=== PATIENT | female | born 1980 | race Caucasian/White ===

== ENCOUNTER 2020-05-22 16:20 | Inpatient (IN) | payer OTHER ==
[~2020-05-22] VITALS: Ht 172.7 cm; Wt 109.1 kg
[2020-05-22 17:27] LABS: BASO # 0.1 x10^3/uL (0.0-0.2); BASO % 1 % (0-3); EOS # 0.1 x10^3/uL (0.0-0.7); EOS % 1 % (0-3); HEMATOCRIT 38.3 % (36.0-47.0); HEMOGLOBIN 12.8 g/dL (12.0-15.5); LYMPH # 2.1 x10^3/uL (1.0-4.8); LYMPH % 17 % (24-48); MEAN CORPUSCULAR HEMOGLOBIN 29 pg (25-35); MEAN CORPUSCULAR HGB CONC 34 g/dL (31-37); MEAN CORPUSCULAR VOLUME 87 fL (79-100); MONO # 0.7 x10^3/uL (0.0-1.1); MONO % 6 % (0-9); NEUT # 9.3 x10^3/uL (1.8-7.7); NEUT % 76 % (31-73); PLATELET COUNT 273 x10^3/uL (140-400); RED BLOOD COUNT 4.41 x10^6/uL (3.50-5.40); RED CELL DISTRIBUTION WIDTH 13.4 % (11.5-14.5); WHITE BLOOD COUNT 12.3 x10^3/uL (4.0-11.0)
[2020-05-22 17:29] LABS: AMPHETAMINE/METHAMPHETAMINE NEG (NEG); BARBITURATES NEG (NEG); BENZODIAZEPINES NEG (NEG); BILIRUBIN,URINE NEGATIVE (NEG); CANNABINOIDS NEG (NEG); CLARITY,URINE TURBID; COCAINE NEG (NEG); COLOR,URINE YELLOW; METHADONE NEG (NEG); NITRITE,URINE POSITIVE (NEG); OPIATES NEG (NEG); PH,URINE 8.5 (<5.0-8.0); PHENCYCLIDINE NEG (NEG); PROTEIN,URINE NEGATIVE (NEG-TRACE)
[2020-05-22] MEDS ORDERED: ONDANSETRON PF 4 MG/2 ML VIAL. IVP ONE (17:30)
[2020-05-22] MEDS ORDERED: fentaNYL PF VIAL 100 MCG/2 ML VIAL IVP ONE ×2 (17:30→19:45)
[2020-05-22] MEDS ORDERED: FAMOTIDINE 20 MG/2 ML VIAL IVP ONE (17:30)
[2020-05-22 17:38] LABS: BACTERIA,URINE MANY /HPF (0-FEW); SQUAMOUS EPITHELIAL CELL,UR MANY /LPF
[2020-05-22 17:39] LABS: CALCIUM 9.2 mg/dL (8.5-10.1); CREATININE 0.8 mg/dL (0.6-1.0); GFR 80.3; POTASSIUM 4.1 mmol/L (3.5-5.1)
[2020-05-22 17:39] LABS: AMORPHOUS SEDIMENT,UR PRESENT /HPF; RBC,URINE OCC /HPF (0-2)
[2020-05-22 17:45] LABS: ALBUMIN 3.7 g/dL (3.4-5.0); ALBUMIN/GLOBULIN RATIO 1.1 (1.0-1.7); TOTAL BILIRUBIN 0.8 mg/dL (0.2-1.0); TOTAL PROTEIN 7.1 g/dL (6.4-8.2)
[2020-05-22 18:06] LABS: PROTHROMBIN TIME PATIENT 12.3 SEC (11.7-14.0)
--- NOTE | 2020-05-22 18:47 | RAD ---
Exam: Ultrasound abdomen complete Indication: Epigastric pain Technique: Real-time grayscale and color Doppler images of the abdomen were obtained by the department tunnel heading supervisor. Comparisons: None FINDINGS: Increased echogenicity of the liver. Hepatopedal flow noted within the portal vein. Numerous gallstones in the gallbladder. There is a sonographic Driscoll sign per the department tunnel heading supervisor. Common bile duct measures 7 mm in diameter. Right kidney measures 11.1 cm in length. No hydronephrosis. Left kidney measures 11.5 cm in length. No hydronephrosis. Pancreas is not well seen secondary overlying bowel gas. Spleen measures 10.57 m in length. Visualized portions aorta and IVC are unremarkable. IMPRESSION: 1. Cholelithiasis with positive sonographic Driscoll sign. Findings are suspicious for acute cholecystitis. Further evaluation if necessary can BE performed with HIDA scan. 2. No hydronephrosis. 3. Hepatic steatosis 4. No splenomegaly. Electronically signed by: Mercedez Driver MD (05/22/2020 6:44 PM) [id number]
[2020-05-22] MEDS ORDERED: PIPERACILLIN/TAZOBACTAM 3.375 GM in IV NORMAL SALINE 50ML 50 ML IV ONE (19:45)
[2020-05-22] MEDS ORDERED: ONDANSETRON PF 4 MG/2 ML VIAL. IV PRN (19:45)
[2020-05-22] MEDS ORDERED: IV NORMAL SALINE 1000ML BAG 1,000 ML IV ONE (19:45)
--- NOTE | 2020-05-22 20:13 | PHYS DOC ---
Past Medical History Past Medical History: No Pertinent History Past Surgical History: Oophorectomy, Other Additional Past Surgical Histo: Ectopic preg, Right oopherectomy Smoking Status: Never Smoker Alcohol Use: Occasionally General Adult EDM: Chief Complaint: ABDOMINAL PAIN HPI: HPI: Patient is a 39 year old female with no significant medical history who presents to the ED today complaining of 10 out of 10 epigastric abdominal pain/right upper quadrant abdominal pain, symptoms began a couple weeks ago, patient not specific on the exact timeline. She states symptoms are intermittent and occur mostly after she eats. Denies anything specifically relieving the symptoms. She states she occasionally gets nauseated but has not vomited. Denies any diarrhea. Review of Systems: Review of Systems: Constitutional: Denies fever or chills. [] Eyes: Denies change in visual acuity. [] HENT: Denies nasal congestion or sore throat. [] Respiratory: Denies cough or shortness of breath. [] Cardiovascular: Denies chest pain or edema. [] GI: Reports epigastric abdominal pain, right upper quadrant pain, denies vomiting, bloody stools or diarrhea. [] : Denies dysuria. [] Musculoskeletal: Denies back pain or joint pain. [] Integument: Denies rash. [] Neurologic: Denies headache, focal weakness or sensory changes. [] Psychiatric: Denies depression or anxiety. [] Heart Score: Risk Factors: Risk Factors: DM, Current or recent (<one month) smoker, HTN, HLP, family history of CAD, obesity. Risk Scores: Score 0 - 3: 2.5% MACE over next 6 weeks - Discharge Home Score 4 - 6: 20.3% MACE over next 6 weeks - Admit for Clinical Observation Score 7 - 10: 72.7% MACE over next 6 weeks - Early Invasive Strategies Current Medications: Current Medications Medications (Trade) Dose Ordered Sig/Selin Start Time Stop Time Status Last Admin Dose Admin Famotidine (Pepcid Vial) 20 mg 1X ONCE 05/22/20 17:30 05/22/20 17:31 DC 05/22/20 17:34 20 MG Fentanyl Citrate (Fentanyl 2ml Vial) 50 mcg PRN Q1HR PRN 05/22/20 19:45 05/23/20 19:44 Ondansetron HCl (Zofran) 4 mg PRN Q8HRS PRN 05/22/20 19:45 05/23/20 19:44 Piperacillin Sod/ Tazobactam Sod 3.375 gm/Sodium Chloride 50 ml @ 100 mls/hr 1X ONCE 05/22/20 19:45 05/22/20 20:14 Sodium Chloride 1,000 ml @ 75 mls/hr 1X ONCE 05/22/20 19:45 05/23/20 09:04 Allergies: Allergies: Allergies Coded Allergies Type Severity Reaction Last Updated Verified No Known Drug Allergies 05/22/20 No Physical Exam: PE: Constitutional: Well developed, well nourished, no acute distress, non-toxic appearance. [] HENT: Normocephalic, atraumatic, bilateral external ears normal, oropharynx moist, no oral exudates, nose normal. [] Eyes: PERRLA, EOMI, conjunctiva normal, no discharge. [] Neck: Normal range of motion, no tenderness, supple, no stridor. [] Cardiovascular:Heart rate regular rhythm, no murmur [] Lungs & Thorax: Bilateral breath sounds clear to auscultation [] Abdomen: Bowel sounds normal, soft, mild tenderness on palpation of the right upper quadrant with positive Driscoll sign, no right lower quadrant tenderness, no masses, no pulsatile masses. [] Skin: Warm, dry, no erythema, no rash. [] Back: No tenderness, no CVA tenderness. [] Extremities: No tenderness, no cyanosis, no clubbing, ROM intact, no edema. [] Neurologic: Alert and oriented X 3, normal motor function, normal sensory function, no focal deficits noted. [] Psychologic: Affect normal, judgement normal, mood normal. [] Current Patient Data: Labs: Laboratory Tests Test 05/22/20 17:08 05/22/20 17:15 05/22/20 17:17 05/22/20 17:35 Urine Collection Type Unknown Urine Color Yellow Urine Clarity Turbid Urine pH 8.5 (<5.0-8.0) Urine Specific Warren 1.020 (1.000-1.030) Urine Protein Negative mg/dL (NEG-TRACE) Urine Glucose (UA) Negative mg/dL (NEG) Urine Ketones (Stick) Negative mg/dL (NEG) Urine Blood Negative (NEG) Urine Nitrite Positive (NEG) Urine Bilirubin Negative (NEG) Urine Urobilinogen Dipstick 1.0 mg/dL (0.2 mg/dL) Urine Leukocyte Esterase Moderate (NEG) Urine RBC Occ /HPF (0-2) Urine WBC 5-10 /HPF (0-4) Urine Squamous Epithelial Cells Many /LPF Urine Amorphous Sediment Present /HPF Urine Bacteria Many /HPF (0-FEW) Urine Opiates Screen Neg (NEG) Urine Methadone Screen Neg (NEG) Urine Barbiturates Neg (NEG) Urine Phencyclidine Screen Neg (NEG) Urine Amphetamine/Methamphetamine Neg (NEG) Urine Benzodiazepines Screen Neg (NEG) Urine Cocaine Screen Neg (NEG) Urine Cannabinoids Screen Neg (NEG) Urine Ethyl Alcohol Neg (NEG) White Blood Count 12.3 x10^3/uL (4.0-11.0) H Red Blood Count 4.41 x10^6/uL (3.50-5.40) Hemoglobin 12.8 g/dL (12.0-15.5) Hematocrit 38.3 % (36.0-47.0) Mean Corpuscular Volume 87 fL (79-100) Mean Corpuscular Hemoglobin 29 pg (25-35) Mean Corpuscular Hemoglobin Concent 34 g/dL (31-37) Red Cell Distribution Width 13.4 % (11.5-14.5) Platelet Count 273 x10^3/uL (140-400) Neutrophils (%) (Auto) 76 % (31-73) H Lymphocytes (%) (Auto) 17 % (24-48) L Monocytes (%) (Auto) 6 % (0-9) Eosinophils (%) (Auto) 1 % (0-3) Basophils (%) (Auto) 1 % (0-3) Neutrophils # (Auto) 9.3 x10^3/uL (1.8-7.7) H Lymphocytes # (Auto) 2.1 x10^3/uL (1.0-4.8) Monocytes # (Auto) 0.7 x10^3/uL (0.0-1.1) Eosinophils # (Auto) 0.1 x10^3/uL (0.0-0.7) Basophils # (Auto) 0.1 x10^3/uL (0.0-0.2) Sodium Level 142 mmol/L (136-145) Potassium Level 4.1 mmol/L (3.5-5.1) Chloride Level 106 mmol/L (98-107) Carbon Dioxide Level 29 mmol/L (21-32) Anion Gap 7 (6-14) Blood Urea Nitrogen 10 mg/dL (7-20) Creatinine 0.8 mg/dL (0.6-1.0) Estimated GFR (Cockcroft-Gault) 80.3 BUN/Creatinine Ratio 13 (6-20) Glucose Level 107 mg/dL (70-99) H Calcium Level 9.2 mg/dL (8.5-10.1) Magnesium Level 2.0 mg/dL (1.8-2.4) Total Bilirubin 0.8 mg/dL (0.2-1.0) Aspartate Amino Transferase (AST) 89 U/L (15-37) H Alanine Aminotransferase (ALT) 65 U/L (14-59) H Alkaline Phosphatase 115 U/L (46-116) Total Protein 7.1 g/dL (6.4-8.2) Albumin 3.7 g/dL (3.4-5.0) Albumin/Globulin Ratio 1.1 (1.0-1.7) Lipase 169 U/L (73-393) Ethyl Alcohol Level < 10 mg/dL (0-10) POC Urine HCG, Qualitative Hcg negative (Negative) Prothrombin Time 12.3 SEC (11.7-14.0) Prothrombin Time INR 1.0 (0.8-1.1) Activated Partial Thromboplast Time 29 SEC (24-38) Laboratory Tests 05/22/20 17:15 Laboratory Tests 05/22/20 17:15 Vital Signs: Vital Signs Date Time Temp Pulse Resp B/P (MAP) Pulse Ox O2 Delivery O2 Flow Rate FiO2 05/22/20 19:48 Room Air 05/22/20 18:20 74 133/73 (93) 99 05/22/20 16:40 98.6 24 98.6 EKG: EKG: [] Radiology/Procedures: Radiology/Procedures: []PROCEDURE: ABDOMEN COMPLETE Exam: Ultrasound abdomen complete Indication: Epigastric pain Technique: Real-time grayscale and color Doppler images of the abdomen were obtained by the department hairspring studder. Comparisons: None FINDINGS: Increased echogenicity of the liver. Hepatopedal flow noted within the portal vein. Numerous gallstones in the gallbladder. There is a sonographic Driscoll sign per the department hairspring studder. Common bile duct measures 7 mm in diameter. Right kidney measures 11.1 cm in length. No hydronephrosis. Left kidney measures 11.5 cm in length. No hydronephrosis. Pancreas is not well seen secondary overlying bowel gas. Spleen measures 10.57 m in length. Visualized portions aorta and IVC are unremarkable. IMPRESSION: 1. Cholelithiasis with positive sonographic Driscoll sign. Findings are suspicious for acute cholecystitis. Further evaluation if necessary can BE performed with HIDA scan. 2. No hydronephrosis. 3. Hepatic steatosis 4. No splenomegaly. Electronically signed by: Mercedez Freedman MD (05/22/2020 6:44 PM) [id number] DICTATED and SIGNED BY: MERCEDEZ FREEDMAN MD DATE: 05/22/20 1844 Course & Med Decision Making: Course & Med Decision Making Pertinent Labs and Imaging studies reviewed. (See chart for details) This is a 39-year-old female patient presenting to the ED today with epigastric abdominal pain and right upper quadrant pain. CBC with a WBC of 12.3, CMP with AST of 89, ALT of 65. Urine positive for nitrates and leukocytes but appears contaminated. Ultrasound of the abdomen is positive for cholecystitis. Patient is afebrile. Patient was given Zosyn in the ED. Spoke with Dr. Baker who requested patient to be n.p.o. after midnight Spoke with Dr. He who accepted patient for admission Melania Disclaimer: Melania Disclaimer: This electronic medical record was generated, in whole or in part, using a voice recognition dictation system. Departure Departure Impression: Primary Impression: Acute cholecystitis Disposition: ADMITTED INPATIENT Condition: STABLE Referrals: NO PCP (PCP) Justicifation of Admission Dx: Justifications for Admission: Justification of Admission Dx: Yes Comments: acute cholecystitis FAUSTO HESTER CLINICAL RESEARCH ASSISTANT May 22, 2020 20:13
[2020-05-22] MEDS: fentaNYL PF VIAL 100 MCG/2 ML VIAL IV PRN (22:58)
[2020-05-22 23:00] VITALS: BP 158/94
--- NOTE | 2020-05-22 23:00 | NUR ---
ADMISSION NOTE: Patient arrived to room 500 via wheelchair accompanied by ED staff. Patient able to take self to bathroom and transfer self to hospital bed without any visible difficulty. Admit order Med/Surg, no tele monitor applied. Patient complains of pain at this time. See eMAR for details. Educated patient on NPO status. Patient has no other complaints at this time. Bed low, locked, call light within reach. Will continue to monitor.
[2020-05-23] VITALS (14 sets, daily range): BP systolic 118–147; BP diastolic 72–92
[2020-05-23] MEDS: fentaNYL PF VIAL 100 MCG/2 ML VIAL IV PRN ×4 (02:49→18:09)
[2020-05-23] MEDS ORDERED: IV RINGERS,LACTATED 1000ML 1,000 ML IV SCH (07:27)
[2020-05-23 07:30] LABS: ALBUMIN 3.2 g/dL (3.4-5.0); ALBUMIN/GLOBULIN RATIO 1.1 (1.0-1.7); CALCIUM 8.6 mg/dL (8.5-10.1); CREATININE 0.7 mg/dL (0.6-1.0); GFR 93.6; TOTAL BILIRUBIN 1.6 mg/dL (0.2-1.0); TOTAL PROTEIN 6.1 g/dL (6.4-8.2)
[2020-05-23] MEDS ORDERED: MORPHINE SULFATE 2 MG/ML VIAL. IV PRN ×2 (07:30→11:45)
[2020-05-23] MEDS ORDERED: ONDANSETRON PF 4 MG/2 ML VIAL. IV PRN (07:30)
[2020-05-23] MEDS ORDERED: HYDROmorphone 2 MG/ML VIAL IV PRN (07:30)
[2020-05-23] MEDS ORDERED: PROCHLORPERAZINE 10 MG/2 ML VIAL. IV PRN (07:30)
[2020-05-23] MEDS ORDERED: LIDOCAINE 1% PF 2 ML VIAL. ID PRN (07:30)
[2020-05-23] MEDS ORDERED: fentaNYL PF VIAL 100 MCG/2 ML VIAL IV PRN ×2 (07:30)
[2020-05-23 07:47] LABS: BASO % 0 % (0-3); EOS % 1 % (0-3); HEMATOCRIT 35.6 % (36.0-47.0); HEMOGLOBIN 11.9 g/dL (12.0-15.5); LYMPH # 1.4 x10^3/uL (1.0-4.8); LYMPH % 21 % (24-48); MEAN CORPUSCULAR HEMOGLOBIN 30 pg (25-35); MEAN CORPUSCULAR HGB CONC 34 g/dL (31-37); MEAN CORPUSCULAR VOLUME 89 fL (79-100); MONO # 0.4 x10^3/uL (0.0-1.1); MONO % 6 % (0-9); NEUT # 4.8 x10^3/uL (1.8-7.7); NEUT % 73 % (31-73); PLATELET COUNT 231 x10^3/uL (140-400); RED CELL DISTRIBUTION WIDTH 13.3 % (11.5-14.5); WHITE BLOOD COUNT 6.6 x10^3/uL (4.0-11.0)
[2020-05-23] MEDS ORDERED: HEPARIN 1,000 UNIT in IV NORMAL SALINE 1,000 ML for SURG PERIOP IRR ONE (08:00)
[2020-05-23] MEDS ORDERED: SURGICEL HEMOSTAT 4X8 EACH. ONE (08:37)
[2020-05-23] MEDS ORDERED: IOHEXOL 300 MG/ML 50 ML VIAL. ONE ×2 (08:37→10:37)
[2020-05-23] MEDS ORDERED: BISACODYL 10 MG SUPP.RECT. ONE (08:37)
[2020-05-23] MEDS ORDERED: BUPIVACAINE-EPI 0.5%-1:200000 MPF 30 ML VIAL. ONE (08:37)
[2020-05-23] MEDS ORDERED: fentaNYL PF VIAL 100 MCG/2 ML VIAL ONE ×2 (09:13→11:24)
[2020-05-23] MEDS ORDERED: PROPOFOL 10 MG/ML (20ML) VIAL. IV ONE (09:13)
[2020-05-23] MEDS ORDERED: MIDAZOLAM HCL/PF 2 MG/2 ML VIAL. ONE (09:13)
[2020-05-23] MEDS ORDERED: DEXAMETHASONE SOD PHOS 4 MG/ML VIAL ONE (09:13)
[2020-05-23] MEDS ORDERED: ROCURONIUM 50 MG/5 ML VIAL. ONE (09:13)
[2020-05-23] MEDS ORDERED: ONDANSETRON PF 4 MG/2 ML VIAL. ONE (09:13)
[2020-05-23] MEDS ORDERED: LIDOCAINE 2% PF 5 ML VIAL. ONE (09:13)
--- NOTE | 2020-05-23 09:39 | NUR ---
SS following for discharge planning. SS reviewed pt chart and discussed with pt RN. Pt is from home with spouse and is currently on room air. COVID19 negative. Per RN, pt having lap cholecystectomy today. Discharge plan is to home when ready. SS will continue to follow for discharge planning.
--- NOTE | 2020-05-23 09:51 | PDOC1 ---
History and Physical Date of Admission Date of Admission DATE: 05/23/20 TIME: 09:50 Identification/Chief Complaint Chief Complaint seen in er with acute cholecystitis , 39 year old female with no significant medical history who presents to the ED today complaining of 10 out of 10 epigastric abdominal pain/right upper quadrant abdominal pain, symptoms began a couple weeks ago, patient not specific on the exact timeline. She states symptoms are intermittent and occur mostly after she eats. Denies anything specifically relieving the symptoms. History of Present Illness History of Present Illness OPERATIVE NOTE. OPERATIVE NOTE Date: Date: May 23, 2020 Pre-Op Diagnosis: Symptomatic cholelithiasis Post-Op Diagnosis: same, cholecystitis, choledocholithiasis with obstruction of bile duct Procedure Performed: laparoscopic cholecystectomy with cholangiogram, common bile duct exploration Surgeon: Juan Diego Baker Anesthesia Type: GETA plus local Blood Loss: 50 Specimans Obtained: gallbladder, common bile duct stone Findings: edematous gallbladder, multiple large stones, normal liver, cholangiogram with obstructing distal common bile duct stone, morbid obesity making the procedure difficult throughout. Complications: none Patient tolerated procedure well and sent to PACU in stable condition. All counts correct. TOMMY BAKER MD May 23, 2020 11:51 Past Medical History Past Medical History Past Medical History Past Medical History Past Medical History: No Pertinent History Past Surgical History: Oophorectomy, Other Additional Past Surgical Histo: Ectopic preg, Right oopherectomy Smoking Status: Never Smoker Alcohol Use: Occasionally FHX OBESITY Psych: No pertinent hx Infectious disease: No pertinent hx Family History Family History: High Cholestrol, Hypertension Current Problem List Problem List Problems Medical Problems: (1) Acute cholecystitis Status: Acute Current Medications Current Medications Current Medications Famotidine (Pepcid Vial) 20 mg 1X ONCE IVP Last administered on 05/22/20at 17:34; Start 05/22/20 at 17:30; Stop 05/22/20 at 17:31; Status DC Ondansetron HCl (Zofran) 4 mg 1X ONCE IVP Last administered on 05/22/20at 17:34; Start 05/22/20 at 17:30; Stop 05/22/20 at 17:31; Status DC Fentanyl Citrate (Fentanyl 2ml Vial) 50 mcg 1X ONCE IVP Last administered on 05/22/20at 17:34; Start 05/22/20 at 17:30; Stop 05/22/20 at 17:31; Status DC Fentanyl Citrate (Fentanyl 2ml Vial) 50 mcg 1X ONCE IVP Last administered on 05/22/20at 19:48; Start 05/22/20 at 19:45; Stop 05/22/20 at 19:47; Status DC Ondansetron HCl (Zofran) 4 mg PRN Q8HRS PRN IV NAUSEA/VOMITING; Start 05/22/20 at 19:45; Stop 05/23/20 at 19:44 Fentanyl Citrate (Fentanyl 2ml Vial) 50 mcg PRN Q1HR PRN IV PAIN Last administered on 05/23/20at 06:02; Start 05/22/20 at 19:45; Stop 05/23/20 at 19:44 Sodium Chloride 1,000 ml @ 75 mls/hr 1X ONCE IV Last administered on 05/22/20at 20:13; Start 05/22/20 at 19:45; Stop 05/23/20 at 09:04; Status DC Piperacillin Sod/ Tazobactam Sod 3.375 gm/Sodium Chloride 50 ml @ 100 mls/hr 1X ONCE IV Last administered on 05/22/20at 20:13; Start 05/22/20 at 19:45; Stop 05/22/20 at 20:14; Status DC Ondansetron HCl (Zofran) 4 mg PRN Q6HRS PRN IV NAUSEA/VOMITING; Start 05/23/20 at 07:30; Stop 05/24/20 at 07:29 Fentanyl Citrate (Fentanyl 2ml Vial) 25 mcg PRN Q5MIN PRN IV MILD PAIN 1-3; Start 05/23/20 at 07:30; Stop 05/24/20 at 07:29 Fentanyl Citrate (Fentanyl 2ml Vial) 50 mcg PRN Q5MIN PRN IV MODERATE TO SEVERE PAIN; Start 05/23/20 at 07:30; Stop 05/24/20 at 07:29 Morphine Sulfate (Morphine Sulfate) 1 mg PRN Q10MIN PRN IV SEVERE PAIN 7-10; Start 05/23/20 at 07:30; Stop 05/24/20 at 07:29 Ringer's Solution 1,000 ml @ 30 mls/hr Q24H IV ; Start 05/23/20 at 07:27; Stop 05/23/20 at 19:26 Lidocaine HCl (Xylocaine-Mpf 1% 2ml Vial) 2 ml PRN 1X PRN ID PRIOR TO IV START; Start 05/23/20 at 07:30; Stop 05/24/20 at 07:29 Hydromorphone HCl (Dilaudid) 0.5 mg PRN Q10MIN PRN IV SEV PAIN, Second choice; Start 05/23/20 at 07:30; Stop 05/24/20 at 07:29 Prochlorperazine Edisylate (Compazine) 5 mg PACU PRN PRN IV NAUSEA, MRX1; Start 05/23/20 at 07:30; Stop 05/24/20 at 07:29 Heparin Sodium (Porcine) 1000 unit/Sodium Chloride 1,001 ml @ 1,001 mls/hr 1X ONCE IRR ; Start 05/23/20 at 08:00; Stop 05/23/20 at 08:59; Status DC Bupivacaine HCl/ Epinephrine Bitart (Sensorcain-Epi 0.5%-1:616603 Mpf) 30 ml STK-MED ONCE .ROUTE ; Start 05/23/20 at 08:37; Stop 05/23/20 at 08:37; Status DC Iohexol (Omnipaque 300 Mg/ml) 50 ml STK-MED ONCE .ROUTE ; Start 05/23/20 at 08:37 ; Stop 05/23/20 at 08:37; Status DC Cellulose (Surgicel Hemostat 4x8) 1 each STK-MED ONCE .ROUTE ; Start 05/23/20 at 08:37; Stop 05/23/20 at 08:37; Status DC Bisacodyl (Dulcolax Supp) 10 mg STK-MED ONCE .ROUTE ; Start 05/23/20 at 08:37; Stop 05/23/20 at 08:37; Status DC Propofol (Diprivan) 200 mg STK-MED ONCE IV ; Start 05/23/20 at 09:13; Stop 05/23/20 at 09:13; Status DC Lidocaine HCl (Lidocaine Pf 2% Vial) 5 ml STK-MED ONCE .ROUTE ; Start 05/23/20 at 09:13; Stop 05/23/20 at 09:13; Status DC Ondansetron HCl (Zofran) 4 mg STK-MED ONCE .ROUTE ; Start 05/23/20 at 09:13; Stop 05/23/20 at 09:13; Status DC Dexamethasone Sodium Phosphate (Decadron) 4 mg STK-MED ONCE .ROUTE ; Start 05/23/20 at 09:13; Stop 05/23/20 at 09:13; Status DC Rocuronium Ama (Zemuron) 50 mg STK-MED ONCE .ROUTE ; Start 05/23/20 at 09:13; Stop 05/23/20 at 09:13; Status DC Fentanyl Citrate (Fentanyl 2ml Vial) 100 mcg STK-MED ONCE .ROUTE ; Start 05/23/20 at 09:13; Stop 05/23/20 at 09:13; Status DC Midazolam HCl (Versed) 2 mg STK-MED ONCE .ROUTE ; Start 05/23/20 at 09:13; Stop 05/23/20 at 09:13; Status DC Active Scripts Active Reported No Known Medications Prior To Admisstion (Info) Each 1 Each MC 1X Allergies Allergies: Coded Allergies: No Known Drug Allergies (Unverified , 05/22/20) ROS Review of System Review of Systems: Constitutional: Denies fever or chills. [] Eyes: Denies change in visual acuity. [] HENT: Denies nasal congestion or sore throat. [] Respiratory: Denies cough or shortness of breath. [] Cardiovascular: Denies chest pain or edema. [] GI: Reports epigastric abdominal pain, right upper quadrant pain, denies vomiting, bloody stools or diarrhea. [] : Denies dysuria. [] Musculoskeletal: Denies back pain or joint pain. [] Integument: Denies rash. [] Neurologic: Denies headache, focal weakness or sensory changes. [] Psychiatric: Denies depression or anxiety. [] 14 pt ros otherwise neg Neurological: No Behavorial Changes, No Bowel/Bladder ControlChng, No Confusion, No Dizziness, No Gait Disturbance, No Headaches, No Impaired Coord/balance, No Memory Loss, No Numbness/Tingling, No Seizures, No Speech Problems, No Tremors, No Visual Changes, No Weakness, No Other Physical Exam Physical Exam Constitutional: Well developed, well nourished, no acute distress, non-toxic appearance. [] HENT: Normocephalic, atraumatic, bilateral external ears normal, oropharynx moist, no oral exudates, nose normal. [] Eyes: PERRLA, EOMI, conjunctiva normal, no discharge. [] Neck: Normal range of motion, no tenderness, supple, no stridor. [] Cardiovascular:Heart rate regular rhythm, no murmur [] Lungs & Thorax: Bilateral breath sounds clear to auscultation [] Abdomen: Bowel sounds normal, soft, mild tenderness on palpation of the right upper quadrant with positive Driscoll sign, no right lower quadrant tenderness, no masses, no pulsatile masses. [] Skin: Warm, dry, no erythema, no rash. [] Back: No tenderness, no CVA tenderness. [] Extremities: No tenderness, no cyanosis, no clubbing, ROM intact, no edema. [] Neurologic: Alert and oriented X 3, normal motor function, normal sensory function, no focal deficits noted. [] Psychologic: Affect normal, judgment normal, mood normal. [] General: Alert, Oriented X3, Cooperative Lungs: Clear to auscultation Breasts: Not examined Extremities: No cyanosis Neuro: Normal speech, Cranial nerves 3-12 NL Psych/Mental Status: Mental status NL, Mood NL Vitals Vitals Vital Signs Date Time Temp Pulse Resp B/P (MAP) Pulse Ox O2 Delivery O2 Flow Rate FiO2 05/23/20 09:13 98.9 68 20 145/94 97 Room Air 98.9 Labs Labs Laboratory Tests Test 05/22/20 17:08 05/22/20 17:15 05/22/20 17:17 05/22/20 17:35 Urine Collection Type Unknown Urine Color Yellow Urine Clarity Turbid Urine pH 8.5 (<5.0-8.0) Urine Specific Wheeler 1.020 (1.000-1.030) Urine Protein Negative mg/dL (NEG-TRACE) Urine Glucose (UA) Negative mg/dL (NEG) Urine Ketones (Stick) Negative mg/dL (NEG) Urine Blood Negative (NEG) Urine Nitrite Positive (NEG) Urine Bilirubin Negative (NEG) Urine Urobilinogen Dipstick 1.0 mg/dL (0.2 mg/dL) Urine Leukocyte Esterase Moderate (NEG) Urine RBC Occ /HPF (0-2) Urine WBC 5-10 /HPF (0-4) Urine Squamous Epithelial Cells Many /LPF Urine Amorphous Sediment Present /HPF Urine Bacteria Many /HPF (0-FEW) Urine Opiates Screen Neg (NEG) Urine Methadone Screen Neg (NEG) Urine Barbiturates Neg (NEG) Urine Phencyclidine Screen Neg (NEG) Urine Amphetamine/Methamphetamine Neg (NEG) Urine Benzodiazepines Screen Neg (NEG) Urine Cocaine Screen Neg (NEG) Urine Cannabinoids Screen Neg (NEG) Urine Ethyl Alcohol Neg (NEG) White Blood Count 12.3 x10^3/uL (4.0-11.0) Red Blood Count 4.41 x10^6/uL (3.50-5.40) Hemoglobin 12.8 g/dL (12.0-15.5) Hematocrit 38.3 % (36.0-47.0) Mean Corpuscular Volume 87 fL (79-100) Mean Corpuscular Hemoglobin 29 pg (25-35) Mean Corpuscular Hemoglobin Concent 34 g/dL (31-37) Red Cell Distribution Width 13.4 % (11.5-14.5) Platelet Count 273 x10^3/uL (140-400) Neutrophils (%) (Auto) 76 % (31-73) Lymphocytes (%) (Auto) 17 % (24-48) Monocytes (%) (Auto) 6 % (0-9) Eosinophils (%) (Auto) 1 % (0-3) Basophils (%) (Auto) 1 % (0-3) Neutrophils # (Auto) 9.3 x10^3/uL (1.8-7.7) Lymphocytes # (Auto) 2.1 x10^3/uL (1.0-4.8) Monocytes # (Auto) 0.7 x10^3/uL (0.0-1.1) Eosinophils # (Auto) 0.1 x10^3/uL (0.0-0.7) Basophils # (Auto) 0.1 x10^3/uL (0.0-0.2) Sodium Level 142 mmol/L (136-145) Potassium Level 4.1 mmol/L (3.5-5.1) Chloride Level 106 mmol/L (98-107) Carbon Dioxide Level 29 mmol/L (21-32) Anion Gap 7 (6-14) Blood Urea Nitrogen 10 mg/dL (7-20) Creatinine 0.8 mg/dL (0.6-1.0) Estimated GFR (Cockcroft-Gault) 80.3 BUN/Creatinine Ratio 13 (6-20) Glucose Level 107 mg/dL (70-99) Calcium Level 9.2 mg/dL (8.5-10.1) Magnesium Level 2.0 mg/dL (1.8-2.4) Total Bilirubin 0.8 mg/dL (0.2-1.0) Aspartate Amino Transf (AST/SGOT) 89 U/L (15-37) Alanine Aminotransferase (ALT/SGPT) 65 U/L (14-59) Alkaline Phosphatase 115 U/L (46-116) Total Protein 7.1 g/dL (6.4-8.2) Albumin 3.7 g/dL (3.4-5.0) Albumin/Globulin Ratio 1.1 (1.0-1.7) Lipase 169 U/L (73-393) Ethyl Alcohol Level < 10 mg/dL (0-10) Bedside Urine HCG, Qualitative Hcg negative (Negative) Prothrombin Time 12.3 SEC (11.7-14.0) Prothromb Time International Ratio 1.0 (0.8-1.1) Activated Partial Thromboplast Time 29 SEC (24-38) Test 05/22/20 23:00 05/23/20 04:00 SARS-CoV-2 Antigen (Rapid) Negative (NEGATIVE) White Blood Count 6.6 x10^3/uL (4.0-11.0) Red Blood Count 4.00 x10^6/uL (3.50-5.40) Hemoglobin 11.9 g/dL (12.0-15.5) Hematocrit 35.6 % (36.0-47.0) Mean Corpuscular Volume 89 fL (79-100) Mean Corpuscular Hemoglobin 30 pg (25-35) Mean Corpuscular Hemoglobin Concent 34 g/dL (31-37) Red Cell Distribution Width 13.3 % (11.5-14.5) Platelet Count 231 x10^3/uL (140-400) Neutrophils (%) (Auto) 73 % (31-73) Lymphocytes (%) (Auto) 21 % (24-48) Monocytes (%) (Auto) 6 % (0-9) Eosinophils (%) (Auto) 1 % (0-3) Basophils (%) (Auto) 0 % (0-3) Neutrophils # (Auto) 4.8 x10^3/uL (1.8-7.7) Lymphocytes # (Auto) 1.4 x10^3/uL (1.0-4.8) Monocytes # (Auto) 0.4 x10^3/uL (0.0-1.1) Eosinophils # (Auto) 0.0 x10^3/uL (0.0-0.7) Basophils # (Auto) 0.0 x10^3/uL (0.0-0.2) Sodium Level 141 mmol/L (136-145) Potassium Level 4.0 mmol/L (3.5-5.1) Chloride Level 107 mmol/L (98-107) Carbon Dioxide Level 25 mmol/L (21-32) Anion Gap 9 (6-14) Blood Urea Nitrogen 8 mg/dL (7-20) Creatinine 0.7 mg/dL (0.6-1.0) Estimated GFR (Cockcroft-Gault) 93.6 BUN/Creatinine Ratio 11 (6-20) Glucose Level 93 mg/dL (70-99) Calcium Level 8.6 mg/dL (8.5-10.1) Total Bilirubin 1.6 mg/dL (0.2-1.0) Aspartate Amino Transf (AST/SGOT) 387 U/L (15-37) Alanine Aminotransferase (ALT/SGPT) 318 U/L (14-59) Alkaline Phosphatase 120 U/L (46-116) Total Protein 6.1 g/dL (6.4-8.2) Albumin 3.2 g/dL (3.4-5.0) Albumin/Globulin Ratio 1.1 (1.0-1.7) Laboratory Tests Test 05/22/20 17:08 05/22/20 17:15 05/22/20 17:17 05/22/20 17:35 Urine Collection Type Unknown Urine Color Yellow Urine Clarity Turbid Urine pH 8.5 (<5.0-8.0) Urine Specific Wheeler 1.020 (1.000-1.030) Urine Protein Negative mg/dL (NEG-TRACE) Urine Glucose (UA) Negative mg/dL (NEG) Urine Ketones (Stick) Negative mg/dL (NEG) Urine Blood Negative (NEG) Urine Nitrite Positive (NEG) Urine Bilirubin Negative (NEG) Urine Urobilinogen Dipstick 1.0 mg/dL (0.2 mg/dL) Urine Leukocyte Esterase Moderate (NEG) Urine RBC Occ /HPF (0-2) Urine WBC 5-10 /HPF (0-4) Urine Squamous Epithelial Cells Many /LPF Urine Amorphous Sediment Present /HPF Urine Bacteria Many /HPF (0-FEW) Urine Opiates Screen Neg (NEG) Urine Methadone Screen Neg (NEG) Urine Barbiturates Neg (NEG) Urine Phencyclidine Screen Neg (NEG) Urine Amphetamine/Methamphetamine Neg (NEG) Urine Benzodiazepines Screen Neg (NEG) Urine Cocaine Screen Neg (NEG) Urine Cannabinoids Screen Neg (NEG) Urine Ethyl Alcohol Neg (NEG) White Blood Count 12.3 x10^3/uL (4.0-11.0) Red Blood Count 4.41 x10^6/uL (3.50-5.40) Hemoglobin 12.8 g/dL (12.0-15.5) Hematocrit 38.3 % (36.0-47.0) Mean Corpuscular Volume 87 fL (79-100) Mean Corpuscular Hemoglobin 29 pg (25-35) Mean Corpuscular Hemoglobin Concent 34 g/dL (31-37) Red Cell Distribution Width 13.4 % (11.5-14.5) Platelet Count 273 x10^3/uL (140-400) Neutrophils (%) (Auto) 76 % (31-73) Lymphocytes (%) (Auto) 17 % (24-48) Monocytes (%) (Auto) 6 % (0-9) Eosinophils (%) (Auto) 1 % (0-3) Basophils (%) (Auto) 1 % (0-3) Neutrophils # (Auto) 9.3 x10^3/uL (1.8-7.7) Lymphocytes # (Auto) 2.1 x10^3/uL (1.0-4.8) Monocytes # (Auto) 0.7 x10^3/uL (0.0-1.1) Eosinophils # (Auto) 0.1 x10^3/uL (0.0-0.7) Basophils # (Auto) 0.1 x10^3/uL (0.0-0.2) Sodium Level 142 mmol/L (136-145) Potassium Level 4.1 mmol/L (3.5-5.1) Chloride Level 106 mmol/L (98-107) Carbon Dioxide Level 29 mmol/L (21-32) Anion Gap 7 (6-14) Blood Urea Nitrogen 10 mg/dL (7-20) Creatinine 0.8 mg/dL (0.6-1.0) Estimated GFR (Cockcroft-Gault) 80.3 BUN/Creatinine Ratio 13 (6-20) Glucose Level 107 mg/dL (70-99) Calcium Level 9.2 mg/dL (8.5-10.1) Magnesium Level 2.0 mg/dL (1.8-2.4) Total Bilirubin 0.8 mg/dL (0.2-1.0) Aspartate Amino Transf (AST/SGOT) 89 U/L (15-37) Alanine Aminotransferase (ALT/SGPT) 65 U/L (14-59) Alkaline Phosphatase 115 U/L (46-116) Total Protein 7.1 g/dL (6.4-8.2) Albumin 3.7 g/dL (3.4-5.0) Albumin/Globulin Ratio 1.1 (1.0-1.7) Lipase 169 U/L (73-393) Ethyl Alcohol Level < 10 mg/dL (0-10) Bedside Urine HCG, Qualitative Hcg negative (Negative) Prothrombin Time 12.3 SEC (11.7-14.0) Prothromb Time International Ratio 1.0 (0.8-1.1) Activated Partial Thromboplast Time 29 SEC (24-38) Test 05/22/20 23:00 05/23/20 04:00 SARS-CoV-2 Antigen (Rapid) Negative (NEGATIVE) White Blood Count 6.6 x10^3/uL (4.0-11.0) Red Blood Count 4.00 x10^6/uL (3.50-5.40) Hemoglobin 11.9 g/dL (12.0-15.5) Hematocrit 35.6 % (36.0-47.0) Mean Corpuscular Volume 89 fL (79-100) Mean Corpuscular Hemoglobin 30 pg (25-35) Mean Corpuscular Hemoglobin Concent 34 g/dL (31-37) Red Cell Distribution Width 13.3 % (11.5-14.5) Platelet Count 231 x10^3/uL (140-400) Neutrophils (%) (Auto) 73 % (31-73) Lymphocytes (%) (Auto) 21 % (24-48) Monocytes (%) (Auto) 6 % (0-9) Eosinophils (%) (Auto) 1 % (0-3) Basophils (%) (Auto) 0 % (0-3) Neutrophils # (Auto) 4.8 x10^3/uL (1.8-7.7) Lymphocytes # (Auto) 1.4 x10^3/uL (1.0-4.8) Monocytes # (Auto) 0.4 x10^3/uL (0.0-1.1) Eosinophils # (Auto) 0.0 x10^3/uL (0.0-0.7) Basophils # (Auto) 0.0 x10^3/uL (0.0-0.2) Sodium Level 141 mmol/L (136-145) Potassium Level 4.0 mmol/L (3.5-5.1) Chloride Level 107 mmol/L (98-107) Carbon Dioxide Level 25 mmol/L (21-32) Anion Gap 9 (6-14) Blood Urea Nitrogen 8 mg/dL (7-20) Creatinine 0.7 mg/dL (0.6-1.0) Estimated GFR (Cockcroft-Gault) 93.6 BUN/Creatinine Ratio 11 (6-20) Glucose Level 93 mg/dL (70-99) Calcium Level 8.6 mg/dL (8.5-10.1) Total Bilirubin 1.6 mg/dL (0.2-1.0) Aspartate Amino Transf (AST/SGOT) 387 U/L (15-37) Alanine Aminotransferase (ALT/SGPT) 318 U/L (14-59) Alkaline Phosphatase 120 U/L (46-116) Total Protein 6.1 g/dL (6.4-8.2) Albumin 3.2 g/dL (3.4-5.0) Albumin/Globulin Ratio 1.1 (1.0-1.7) Images Images Exam: Ultrasound abdomen complete Indication: Epigastric pain Technique: Real-time grayscale and color Doppler images of the abdomen were obtained by the department lodging house keeper. Comparisons: None FINDINGS: Increased echogenicity of the liver. Hepatopedal flow noted within the portal vein. Numerous gallstones in the gallbladder. There is a sonographic Driscoll sign per the department lodging house keeper. Common bile duct measures 7 mm in diameter. Right kidney measures 11.1 cm in length. No hydronephrosis. Left kidney measures 11.5 cm in length. No hydronephrosis. Pancreas is not well seen secondary overlying bowel gas. Spleen measures 10.57 m in length. Visualized portions aorta and IVC are unremarkable. IMPRESSION: 1. Cholelithiasis with positive sonographic Driscoll sign. Findings are suspicious for acute cholecystitis. Further evaluation if necessary can BE performed with HIDA scan. 2. No hydronephrosis. 3. Hepatic steatosis 4. No splenomegaly. Electronically signed by: Mercedez Freedman MD (05/22/2020 6:44 PM) [id number] DICTATED and SIGNED BY: MERCEDEZ FREEDMAN MD DATE: 05/22/20 1844 VTE Prophylaxis Ordered VTE Prophylaxis Devices: Contraindicated VTE Pharmacological Prophylaxi: Contraindicated Assessment/Plan Assessment/Plan IMPRESSION: 1. Cholelithiasis with positive sonographic Driscoll sign. suspicious for acute cholecystitis. 2. No hydronephrosis. 3. Hepatic steatosis 4. morbid obesity plan admit NPO IV FLUID SUPPORT CONSULT GEN SURGERY DVT PROPHYLAXIS, SCD'S Justicifation of Admission Dx: Justifications for Admission: Justification of Admission Dx: Yes ADELAIDA GONZALES MD May 23, 2020 09:51
--- NOTE | 2020-05-23 10:04 | PDOC2 ---
CONSULT Date of Consult Date of Consult DATE: 05/23/20 TIME: 09:59 Reason for Consult Reason for Consult: Calculous cholecystitis Referring Physician Referring Physician: Dr. He Identification/Chief Complaint Chief Complaint RUQ pain Source Source: Chart review, Patient History of Present Illness Reason for Visit: 39 yo F with on and off abd pain for awhile, but worsened last night. Not improved this AM. Pt seen in preop. Past Medical History Cardiovascular: No pertinent hx Past Surgical History Past Surgical History: Other (oophrectomy for ectopic ) Family History Family History: No Significant Social History No ALCOHOL: none Current Problem List Problem List Problems Medical Problems: (1) Acute cholecystitis Status: Acute Current Medications Current Medications Current Medications Famotidine (Pepcid Vial) 20 mg 1X ONCE IVP Last administered on 05/22/20at 17:34; Start 05/22/20 at 17:30; Stop 05/22/20 at 17:31; Status DC Ondansetron HCl (Zofran) 4 mg 1X ONCE IVP Last administered on 05/22/20at 17:34; Start 05/22/20 at 17:30; Stop 05/22/20 at 17:31; Status DC Fentanyl Citrate (Fentanyl 2ml Vial) 50 mcg 1X ONCE IVP Last administered on 05/22/20at 17:34; Start 05/22/20 at 17:30; Stop 05/22/20 at 17:31; Status DC Fentanyl Citrate (Fentanyl 2ml Vial) 50 mcg 1X ONCE IVP Last administered on 05/22/20at 19:48; Start 05/22/20 at 19:45; Stop 05/22/20 at 19:47; Status DC Ondansetron HCl (Zofran) 4 mg PRN Q8HRS PRN IV NAUSEA/VOMITING; Start 05/22/20 at 19:45; Stop 05/23/20 at 19:44 Fentanyl Citrate (Fentanyl 2ml Vial) 50 mcg PRN Q1HR PRN IV PAIN Last administered on 05/23/20at 06:02; Start 05/22/20 at 19:45; Stop 05/23/20 at 19:44 Sodium Chloride 1,000 ml @ 75 mls/hr 1X ONCE IV Last administered on 05/22/20at 20:13; Start 05/22/20 at 19:45; Stop 05/23/20 at 09:04; Status DC Piperacillin Sod/ Tazobactam Sod 3.375 gm/Sodium Chloride 50 ml @ 100 mls/hr 1X ONCE IV Last administered on 05/22/20at 20:13; Start 05/22/20 at 19:45; Stop 05/22/20 at 20:14; Status DC Ondansetron HCl (Zofran) 4 mg PRN Q6HRS PRN IV NAUSEA/VOMITING; Start 05/23/20 at 07:30; Stop 05/24/20 at 07:29 Fentanyl Citrate (Fentanyl 2ml Vial) 25 mcg PRN Q5MIN PRN IV MILD PAIN 1-3; Start 05/23/20 at 07:30; Stop 05/24/20 at 07:29 Fentanyl Citrate (Fentanyl 2ml Vial) 50 mcg PRN Q5MIN PRN IV MODERATE TO SEVERE PAIN; Start 05/23/20 at 07:30; Stop 05/24/20 at 07:29 Morphine Sulfate (Morphine Sulfate) 1 mg PRN Q10MIN PRN IV SEVERE PAIN 7-10; Start 05/23/20 at 07:30; Stop 05/24/20 at 07:29 Ringer's Solution 1,000 ml @ 30 mls/hr Q24H IV ; Start 05/23/20 at 07:27; Stop 05/23/20 at 19:26 Lidocaine HCl (Xylocaine-Mpf 1% 2ml Vial) 2 ml PRN 1X PRN ID PRIOR TO IV START; Start 05/23/20 at 07:30; Stop 05/24/20 at 07:29 Hydromorphone HCl (Dilaudid) 0.5 mg PRN Q10MIN PRN IV SEV PAIN, Second choice; Start 05/23/20 at 07:30; Stop 05/24/20 at 07:29 Prochlorperazine Edisylate (Compazine) 5 mg PACU PRN PRN IV NAUSEA, MRX1; Start 05/23/20 at 07:30; Stop 05/24/20 at 07:29 Heparin Sodium (Porcine) 1000 unit/Sodium Chloride 1,001 ml @ 1,001 mls/hr 1X ONCE IRR ; Start 05/23/20 at 08:00; Stop 05/23/20 at 08:59; Status DC Bupivacaine HCl/ Epinephrine Bitart (Sensorcain-Epi 0.5%-1:368958 Mpf) 30 ml STK-MED ONCE .ROUTE ; Start 05/23/20 at 08:37; Stop 05/23/20 at 08:37; Status DC Iohexol (Omnipaque 300 Mg/ml) 50 ml STK-MED ONCE .ROUTE ; Start 05/23/20 at 08:37; Stop 05/23/20 at 08:37; Status DC Cellulose (Surgicel Hemostat 4x8) 1 each STK-MED ONCE .ROUTE ; Start 05/23/20 at 08:37; Stop 05/23/20 at 08:37; Status DC Bisacodyl (Dulcolax Supp) 10 mg STK-MED ONCE .ROUTE ; Start 05/23/20 at 08:37; Stop 05/23/20 at 08:37; Status DC Propofol (Diprivan) 200 mg STK-MED ONCE IV ; Start 05/23/20 at 09:13; Stop 05/23/20 at 09:13; Status DC Lidocaine HCl (Lidocaine Pf 2% Vial) 5 ml STK-MED ONCE .ROUTE ; Start 05/23/20 at 09:13; Stop 05/23/20 at 09:13; Status DC Ondansetron HCl (Zofran) 4 mg STK-MED ONCE .ROUTE ; Start 05/23/20 at 09:13; Stop 05/23/20 at 09:13; Status DC Dexamethasone Sodium Phosphate (Decadron) 4 mg STK-MED ONCE .ROUTE ; Start 05/23/20 at 09:13; Stop 05/23/20 at 09:13; Status DC Rocuronium Oil Trough (Zemuron) 50 mg STK-MED ONCE .ROUTE ; Start 05/23/20 at 09:13; Stop 05/23/20 at 09:13; Status DC Fentanyl Citrate (Fentanyl 2ml Vial) 100 mcg STK-MED ONCE .ROUTE ; Start 05/23/20 at 09:13; Stop 05/23/20 at 09:13; Status DC Midazolam HCl (Versed) 2 mg STK-MED ONCE .ROUTE ; Start 05/23/20 at 09:13; Stop 05/23/20 at 09:13; Status DC Active Scripts Active Reported No Known Medications Prior To Admisstion (Info) Each 1 Each MC 1X Allergies Allergies: Coded Allergies: No Known Drug Allergies (Unverified , 05/22/20) ROS Gastrointestinal: Yes Nausea, Yes Abdominal Pain Physical Exam General: Alert, Oriented X3, Cooperative, moderate distress, Other (morbidly obese) HEENT: Atraumatic Lungs: Normal air movement Abdomen: Soft, Other (TTP RUQ) Extremities: No clubbing, No cyanosis Skin: No rashes, No breakdown Neuro: Normal speech, Sensation intact Psych/Mental Status: Mental status NL, Mood NL Vitals VITALS Vital Signs Date Time Temp Pulse Resp B/P (MAP) Pulse Ox O2 Delivery O2 Flow Rate FiO2 05/23/20 09:13 98.9 68 20 145/94 97 Room Air 98.9 Labs Labs Laboratory Tests Test 05/22/20 17:08 05/22/20 17:15 05/22/20 17:17 05/22/20 17:35 Urine Collection Type Unknown Urine Color Yellow Urine Clarity Turbid Urine pH 8.5 (<5.0-8.0) Urine Specific [place] 1.020 (1.000-1.030) Urine Protein Negative mg/dL (NEG-TRACE) Urine Glucose (UA) Negative mg/dL (NEG) Urine Ketones (Stick) Negative mg/dL (NEG) Urine Blood Negative (NEG) Urine Nitrite Positive (NEG) Urine Bilirubin Negative (NEG) Urine Urobilinogen Dipstick 1.0 mg/dL (0.2 mg/dL) Urine Leukocyte Esterase Moderate (NEG) Urine RBC Occ /HPF (0-2) Urine WBC 5-10 /HPF (0-4) Urine Squamous Epithelial Cells Many /LPF Urine Amorphous Sediment Present /HPF Urine Bacteria Many /HPF (0-FEW) Urine Opiates Screen Neg (NEG) Urine Methadone Screen Neg (NEG) Urine Barbiturates Neg (NEG) Urine Phencyclidine Screen Neg (NEG) Urine Amphetamine/Methamphetamine Neg (NEG) Urine Benzodiazepines Screen Neg (NEG) Urine Cocaine Screen Neg (NEG) Urine Cannabinoids Screen Neg (NEG) Urine Ethyl Alcohol Neg (NEG) White Blood Count 12.3 x10^3/uL (4.0-11.0) Red Blood Count 4.41 x10^6/uL (3.50-5.40) Hemoglobin 12.8 g/dL (12.0-15.5) Hematocrit 38.3 % (36.0-47.0) Mean Corpuscular Volume 87 fL (79-100) Mean Corpuscular Hemoglobin 29 pg (25-35) Mean Corpuscular Hemoglobin Concent 34 g/dL (31-37) Red Cell Distribution Width 13.4 % (11.5-14.5) Platelet Count 273 x10^3/uL (140-400) Neutrophils (%) (Auto) 76 % (31-73) Lymphocytes (%) (Auto) 17 % (24-48) Monocytes (%) (Auto) 6 % (0-9) Eosinophils (%) (Auto) 1 % (0-3) Basophils (%) (Auto) 1 % (0-3) Neutrophils # (Auto) 9.3 x10^3/uL (1.8-7.7) Lymphocytes # (Auto) 2.1 x10^3/uL (1.0-4.8) Monocytes # (Auto) 0.7 x10^3/uL (0.0-1.1) Eosinophils # (Auto) 0.1 x10^3/uL (0.0-0.7) Basophils # (Auto) 0.1 x10^3/uL (0.0-0.2) Sodium Level 142 mmol/L (136-145) Potassium Level 4.1 mmol/L (3.5-5.1) Chloride Level 106 mmol/L (98-107) Carbon Dioxide Level 29 mmol/L (21-32) Anion Gap 7 (6-14) Blood Urea Nitrogen 10 mg/dL (7-20) Creatinine 0.8 mg/dL (0.6-1.0) Estimated GFR (Cockcroft-Gault) 80.3 BUN/Creatinine Ratio 13 (6-20) Glucose Level 107 mg/dL (70-99) Calcium Level 9.2 mg/dL (8.5-10.1) Magnesium Level 2.0 mg/dL (1.8-2.4) Total Bilirubin 0.8 mg/dL (0.2-1.0) Aspartate Amino Transf (AST/SGOT) 89 U/L (15-37) Alanine Aminotransferase (ALT/SGPT) 65 U/L (14-59) Alkaline Phosphatase 115 U/L (46-116) Total Protein 7.1 g/dL (6.4-8.2) Albumin 3.7 g/dL (3.4-5.0) Albumin/Globulin Ratio 1.1 (1.0-1.7) Lipase 169 U/L (73-393) Ethyl Alcohol Level < 10 mg/dL (0-10) Bedside Urine HCG, Qualitative Hcg negative (Negative) Prothrombin Time 12.3 SEC (11.7-14.0) Prothromb Time International Ratio 1.0 (0.8-1.1) Activated Partial Thromboplast Time 29 SEC (24-38) Test 05/22/20 23:00 05/23/20 04:00 SARS-CoV-2 Antigen (Rapid) Negative (NEGATIVE) White Blood Count 6.6 x10^3/uL (4.0-11.0) Red Blood Count 4.00 x10^6/uL (3.50-5.40) Hemoglobin 11.9 g/dL (12.0-15.5) Hematocrit 35.6 % (36.0-47.0) Mean Corpuscular Volume 89 fL (79-100) Mean Corpuscular Hemoglobin 30 pg (25-35) Mean Corpuscular Hemoglobin Concent 34 g/dL (31-37) Red Cell Distribution Width 13.3 % (11.5-14.5) Platelet Count 231 x10^3/uL (140-400) Neutrophils (%) (Auto) 73 % (31-73) Lymphocytes (%) (Auto) 21 % (24-48) Monocytes (%) (Auto) 6 % (0-9) Eosinophils (%) (Auto) 1 % (0-3) Basophils (%) (Auto) 0 % (0-3) Neutrophils # (Auto) 4.8 x10^3/uL (1.8-7.7) Lymphocytes # (Auto) 1.4 x10^3/uL (1.0-4.8) Monocytes # (Auto) 0.4 x10^3/uL (0.0-1.1) Eosinophils # (Auto) 0.0 x10^3/uL (0.0-0.7) Basophils # (Auto) 0.0 x10^3/uL (0.0-0.2) Sodium Level 141 mmol/L (136-145) Potassium Level 4.0 mmol/L (3.5-5.1) Chloride Level 107 mmol/L (98-107) Carbon Dioxide Level 25 mmol/L (21-32) Anion Gap 9 (6-14) Blood Urea Nitrogen 8 mg/dL (7-20) Creatinine 0.7 mg/dL (0.6-1.0) Estimated GFR (Cockcroft-Gault) 93.6 BUN/Creatinine Ratio 11 (6-20) Glucose Level 93 mg/dL (70-99) Calcium Level 8.6 mg/dL (8.5-10.1) Total Bilirubin 1.6 mg/dL (0.2-1.0) Aspartate Amino Transf (AST/SGOT) 387 U/L (15-37) Alanine Aminotransferase (ALT/SGPT) 318 U/L (14-59) Alkaline Phosphatase 120 U/L (46-116) Total Protein 6.1 g/dL (6.4-8.2) Albumin 3.2 g/dL (3.4-5.0) Albumin/Globulin Ratio 1.1 (1.0-1.7) Laboratory Tests Test 05/22/20 17:08 05/22/20 17:15 05/22/20 17:17 05/22/20 17:35 Urine Collection Type Unknown Urine Color Yellow Urine Clarity Turbid Urine pH 8.5 (<5.0-8.0) Urine Specific [place] 1.020 (1.000-1.030) Urine Protein Negative mg/dL (NEG-TRACE) Urine Glucose (UA) Negative mg/dL (NEG) Urine Ketones (Stick) Negative mg/dL (NEG) Urine Blood Negative (NEG) Urine Nitrite Positive (NEG) Urine Bilirubin Negative (NEG) Urine Urobilinogen Dipstick 1.0 mg/dL (0.2 mg/dL) Urine Leukocyte Esterase Moderate (NEG) Urine RBC Occ /HPF (0-2) Urine WBC 5-10 /HPF (0-4) Urine Squamous Epithelial Cells Many /LPF Urine Amorphous Sediment Present /HPF Urine Bacteria Many /HPF (0-FEW) Urine Opiates Screen Neg (NEG) Urine Methadone Screen Neg (NEG) Urine Barbiturates Neg (NEG) Urine Phencyclidine Screen Neg (NEG) Urine Amphetamine/Methamphetamine Neg (NEG) Urine Benzodiazepines Screen Neg (NEG) Urine Cocaine Screen Neg (NEG) Urine Cannabinoids Screen Neg (NEG) Urine Ethyl Alcohol Neg (NEG) White Blood Count 12.3 x10^3/uL (4.0-11.0) Red Blood Count 4.41 x10^6/uL (3.50-5.40) Hemoglobin 12.8 g/dL (12.0-15.5) Hematocrit 38.3 % (36.0-47.0) Mean Corpuscular Volume 87 fL (79-100) Mean Corpuscular Hemoglobin 29 pg (25-35) Mean Corpuscular Hemoglobin Concent 34 g/dL (31-37) Red Cell Distribution Width 13.4 % (11.5-14.5) Platelet Count 273 x10^3/uL (140-400) Neutrophils (%) (Auto) 76 % (31-73) Lymphocytes (%) (Auto) 17 % (24-48) Monocytes (%) (Auto) 6 % (0-9) Eosinophils (%) (Auto) 1 % (0-3) Basophils (%) (Auto) 1 % (0-3) Neutrophils # (Auto) 9.3 x10^3/uL (1.8-7.7) Lymphocytes # (Auto) 2.1 x10^3/uL (1.0-4.8) Monocytes # (Auto) 0.7 x10^3/uL (0.0-1.1) Eosinophils # (Auto) 0.1 x10^3/uL (0.0-0.7) Basophils # (Auto) 0.1 x10^3/uL (0.0-0.2) Sodium Level 142 mmol/L (136-145) Potassium Level 4.1 mmol/L (3.5-5.1) Chloride Level 106 mmol/L (98-107) Carbon Dioxide Level 29 mmol/L (21-32) Anion Gap 7 (6-14) Blood Urea Nitrogen 10 mg/dL (7-20) Creatinine 0.8 mg/dL (0.6-1.0) Estimated GFR (Cockcroft-Gault) 80.3 BUN/Creatinine Ratio 13 (6-20) Glucose Level 107 mg/dL (70-99) Calcium Level 9.2 mg/dL (8.5-10.1) Magnesium Level 2.0 mg/dL (1.8-2.4) Total Bilirubin 0.8 mg/dL (0.2-1.0) Aspartate Amino Transf (AST/SGOT) 89 U/L (15-37) Alanine Aminotransferase (ALT/SGPT) 65 U/L (14-59) Alkaline Phosphatase 115 U/L (46-116) Total Protein 7.1 g/dL (6.4-8.2) Albumin 3.7 g/dL (3.4-5.0) Albumin/Globulin Ratio 1.1 (1.0-1.7) Lipase 169 U/L (73-393) Ethyl Alcohol Level < 10 mg/dL (0-10) Bedside Urine HCG, Qualitative Hcg negative (Negative) Prothrombin Time 12.3 SEC (11.7-14.0) Prothromb Time International Ratio 1.0 (0.8-1.1) Activated Partial Thromboplast Time 29 SEC (24-38) Test 05/22/20 23:00 05/23/20 04:00 SARS-CoV-2 Antigen (Rapid) Negative (NEGATIVE) White Blood Count 6.6 x10^3/uL (4.0-11.0) Red Blood Count 4.00 x10^6/uL (3.50-5.40) Hemoglobin 11.9 g/dL (12.0-15.5) Hematocrit 35.6 % (36.0-47.0) Mean Corpuscular Volume 89 fL (79-100) Mean Corpuscular Hemoglobin 30 pg (25-35) Mean Corpuscular Hemoglobin Concent 34 g/dL (31-37) Red Cell Distribution Width 13.3 % (11.5-14.5) Platelet Count 231 x10^3/uL (140-400) Neutrophils (%) (Auto) 73 % (31-73) Lymphocytes (%) (Auto) 21 % (24-48) Monocytes (%) (Auto) 6 % (0-9) Eosinophils (%) (Auto) 1 % (0-3) Basophils (%) (Auto) 0 % (0-3) Neutrophils # (Auto) 4.8 x10^3/uL (1.8-7.7) Lymphocytes # (Auto) 1.4 x10^3/uL (1.0-4.8) Monocytes # (Auto) 0.4 x10^3/uL (0.0-1.1) Eosinophils # (Auto) 0.0 x10^3/uL (0.0-0.7) Basophils # (Auto) 0.0 x10^3/uL (0.0-0.2) Sodium Level 141 mmol/L (136-145) Potassium Level 4.0 mmol/L (3.5-5.1) Chloride Level 107 mmol/L (98-107) Carbon Dioxide Level 25 mmol/L (21-32) Anion Gap 9 (6-14) Blood Urea Nitrogen 8 mg/dL (7-20) Creatinine 0.7 mg/dL (0.6-1.0) Estimated GFR (Cockcroft-Gault) 93.6 BUN/Creatinine Ratio 11 (6-20) Glucose Level 93 mg/dL (70-99) Calcium Level 8.6 mg/dL (8.5-10.1) Total Bilirubin 1.6 mg/dL (0.2-1.0) Aspartate Amino Transf (AST/SGOT) 387 U/L (15-37) Alanine Aminotransferase (ALT/SGPT) 318 U/L (14-59) Alkaline Phosphatase 120 U/L (46-116) Total Protein 6.1 g/dL (6.4-8.2) Albumin 3.2 g/dL (3.4-5.0) Albumin/Globulin Ratio 1.1 (1.0-1.7) Images Images US with gallstones and US alegre sign Assessment/Plan Assessment/Plan 39 yo F with calculous cholecystitis TO OR for laparoscopic versus open cholecystectomy with cholangiogram. R/R/B/A d/w pt. Risks, including, but not limited to: bleeding, infection, damage to surrounding structures, risk of anesthesia, risk of open. She appears to understand, her questions are answered and she elects to proceed. Thanks for consult! TOMMY IBRAHIM MD May 23, 2020 10:04
[2020-05-23] MEDS ORDERED: ceFAZolin SODIUM IV Push 1 GM VIAL. IVP ONE ×3 (10:12)
[2020-05-23] MEDS ORDERED: GLUCAGON,HUMAN RECOMBINANT 1 MG/ML VIAL. ONE (10:34)
[2020-05-23] MEDS ORDERED: GLYCOPYRROLATE 1 MG/5 ML VIAL. ONE (10:45)
[2020-05-23] MEDS ORDERED: NEOSTIGMINE METHYLSULFATE 5 MG/5 ML SYRINGE. ONE (10:45)
[2020-05-23] MEDS ORDERED: KETOROLAC 30 MG/ML VIAL. ONE (10:52)
[2020-05-23] MEDS: IV RINGERS,LACTATED 1000ML 1,000 ML IV SCH ×2 (11:41→21:41)
[2020-05-23] MEDS ORDERED: IV NORMAL SALINE 1000ML BAG 1,000 ML IV SCH (11:41)
[2020-05-23] MEDS ORDERED: NALOXONE 0.4 MG/ML VIAL. IV PRN (11:45)
[2020-05-23] MEDS ORDERED: KETOROLAC 30 MG/ML VIAL. IV PRN (11:45)
[2020-05-23] MEDS ORDERED: 0.9 % SODIUM CHLORIDE 10 ML DISP.SYRIN. IV PRN (11:45)
[2020-05-23] MEDS ORDERED: DEXTROSE 50% 25 GM / 50ML DISP.SYRIN. IV PRN (11:45)
--- NOTE | 2020-05-23 11:51 | PDOC4 ---
OPERATIVE NOTE Date: Date: May 23, 2020 Pre-Op Diagnosis: Symptomatic cholelithiasis Post-Op Diagnosis: same, cholecystitis, choledocholithiasis with obstruction of bile duct Procedure Performed: laparoscopic cholecystectomy with cholangiogram, common bile duct exploration Surgeon: Juan Diego Ibrahim Anesthesia Type: GETA plus local Blood Loss: 50 Specimans Obtained: gallbladder, common bile duct stone Findings: edematous gallbladder, multiple large stones, normal liver, cholangiogram with obstructing distal common bile duct stone, morbid obesity making the procedure difficult throughout. Complications: none Operative Note: After obtaining informed consent, patient was taken to OR, induced under GETA and prepped in the usual fashion. 5 mm ports placed umbilical, 2 x RUQ, 12 port placed epigastric, all under laparoscopic guidance. Abdominal cavity was explored and noted as above. Gallbladder grasped and take down in dome down fashion off fossa using cautery. Cystic artery ligated with clips. Cholangiogram was obtained via cystic duct and demonstrated distal obstructing stone. Attempts at clearing with sebastian and glucagon were unsuccessful. Ureteroscope was used as common bile duct scope, was introduced via cystic duct and used to capture stone with basket. Stone was sent to pathology. Repeat cholangiogram demonstrated patency of duct. Cystic duct ligated with clips and hemolok. Gallbladder placed in bag, delivered and sent to pathology. Copious irrigation. No evidence of bleeding or other pathology at time of closure. Surgicel placed in fossa. Ports removed without bleeding. Fascia repaired with 0 vicryl. Skin repaired with 4 0 monocryl. Dressing placed. Patient tolerated procedure well and sent to PACU in stable condition. All counts correct. Wound class is 2. TOMMY IBRAHIM MD May 23, 2020 11:51
--- NOTE | 2020-05-23 12:03 | RAD ---
Intraoperative cholangiogram INDICATION: Cholangiogram in operating room with C-arm FINDINGS: Intraoperative cholangiogram shows opacification of the common bile duct and cystic duct stump with contrast entering into the duodenum. A stone was reportedly retrieved from the common duct. Total fluoroscopy time was 1 minute 44 seconds. 5 images were obtained. IMPRESSION: Intraoperative cholangiogram postcholecystectomy showing satisfactory drainage of contrast from the common bile duct. Electronically signed by: Ros Dias MD (05/23/2020 12:00 PM) [id number]
[2020-05-23] MEDS: DOCUSATE SODIUM 100 MG CAPSULE. PO SCH (20:37)
[2020-05-23] MEDS: HYDROcodone/APAP 5/325MG 1 TAB TABLET PO PRN (20:42)
--- NOTE | 2020-05-23 22:00 | NUR ---
Pt up to bathroom, passed gas and had small mucousy BM, with a very small amount of blood. Pt states that's not her normal. Will monitor her next BM.
[2020-05-24 03:00] VITALS: BP 119/73
[2020-05-24] MEDS: IV RINGERS,LACTATED 1000ML 1,000 ML IV SCH (03:58)
[2020-05-24 04:39] LABS: BASO % 0 % (0-3); EOS % 0 % (0-3); HEMATOCRIT 33.4 % (36.0-47.0); HEMOGLOBIN 11.2 g/dL (12.0-15.5); LYMPH # 1.9 x10^3/uL (1.0-4.8); LYMPH % 16 % (24-48); MEAN CORPUSCULAR HEMOGLOBIN 30 pg (25-35); MEAN CORPUSCULAR HGB CONC 34 g/dL (31-37); MEAN CORPUSCULAR VOLUME 88 fL (79-100); MONO # 0.9 x10^3/uL (0.0-1.1); MONO % 7 % (0-9); NEUT # 9.1 x10^3/uL (1.8-7.7); NEUT % 76 % (31-73); PLATELET COUNT 231 x10^3/uL (140-400); RED CELL DISTRIBUTION WIDTH 13.4 % (11.5-14.5); WHITE BLOOD COUNT 11.9 x10^3/uL (4.0-11.0)
[2020-05-24 05:05] LABS: ALBUMIN 2.9 g/dL (3.4-5.0); CALCIUM 8.1 mg/dL (8.5-10.1); CREATININE 0.8 mg/dL (0.6-1.0); DIRECT BILIRUBIN 2.5 mg/dL (0.0-0.2); GFR 80.3; TOTAL BILIRUBIN 2.9 mg/dL (0.2-1.0); TOTAL PROTEIN 5.4 g/dL (6.4-8.2)
[2020-05-24 07:00] VITALS: BP 154/95
[2020-05-24] MEDS: HYDROcodone/APAP 5/325MG 1 TAB TABLET PO PRN ×4 (07:29→22:43)
[2020-05-24] MEDS: DOCUSATE SODIUM 100 MG CAPSULE. PO SCH ×2 (09:26→20:59)
[2020-05-24 10:44] VITALS: BP 144/91
--- NOTE | 2020-05-24 11:16 | PDOC ---
PROGRESS NOTES Date of Service: DATE: 05/24/20 TIME: 11:15 Chief Complaint Chief Complaint VTE Prophylaxis Ordered VTE Prophylaxis Devices: Contraindicated VTE Pharmacological Prophylaxi: Contraindicated Assessment/Plan Assessment/Plan IMPRESSION: 1. Cholelithiasis with positive sonographic Driscoll sign. // acute cholecystitis. 2. No hydronephrosis. 3. Hepatic steatosis 4. morbid obesity plan admit NPO IV FLUID SUPPORT CONSULT GEN SURGERY DVT PROPHYLAXIS, SCD'S Justicifation of Admission Dx: Justicifation of Admission Dx: Justifications for Admission: Justification of Admission Dx: Yes Vitals Vitals Vital Signs Date Time Temp Pulse Resp B/P (MAP) Pulse Ox O2 Delivery O2 Flow Rate FiO2 05/24/20 10:44 99.7 82 18 144/91 (108) 90 Room Air 99.7 05/23/20 12:10 6 Physical Exam General: Alert, Oriented X3, Cooperative, No acute distress Lungs: Clear Abdomen: Soft, Other (TTP RUQ) Extremities: No cyanosis Skin: No rashes, No breakdown Labs LABS Laboratory Tests Test 05/24/20 04:00 White Blood Count 11.9 x10^3/uL (4.0-11.0) Red Blood Count 3.80 x10^6/uL (3.50-5.40) Hemoglobin 11.2 g/dL (12.0-15.5) Hematocrit 33.4 % (36.0-47.0) Mean Corpuscular Volume 88 fL (79-100) Mean Corpuscular Hemoglobin 30 pg (25-35) Mean Corpuscular Hemoglobin Concent 34 g/dL (31-37) Red Cell Distribution Width 13.4 % (11.5-14.5) Platelet Count 231 x10^3/uL (140-400) Neutrophils (%) (Auto) 76 % (31-73) Lymphocytes (%) (Auto) 16 % (24-48) Monocytes (%) (Auto) 7 % (0-9) Eosinophils (%) (Auto) 0 % (0-3) Basophils (%) (Auto) 0 % (0-3) Neutrophils # (Auto) 9.1 x10^3/uL (1.8-7.7) Lymphocytes # (Auto) 1.9 x10^3/uL (1.0-4.8) Monocytes # (Auto) 0.9 x10^3/uL (0.0-1.1) Eosinophils # (Auto) 0.0 x10^3/uL (0.0-0.7) Basophils # (Auto) 0.0 x10^3/uL (0.0-0.2) Sodium Level 140 mmol/L (136-145) Potassium Level 4.0 mmol/L (3.5-5.1) Chloride Level 106 mmol/L (98-107) Carbon Dioxide Level 24 mmol/L (21-32) Anion Gap 10 (6-14) Blood Urea Nitrogen 9 mg/dL (7-20) Creatinine 0.8 mg/dL (0.6-1.0) Estimated GFR (Cockcroft-Gault) 80.3 Glucose Level 100 mg/dL (70-99) Calcium Level 8.1 mg/dL (8.5-10.1) Total Bilirubin 2.9 mg/dL (0.2-1.0) Direct Bilirubin 2.5 mg/dL (0.0-0.2) Aspartate Amino Transf (AST/SGOT) 309 U/L (15-37) Alanine Aminotransferase (ALT/SGPT) 451 U/L (14-59) Alkaline Phosphatase 164 U/L (46-116) Total Protein 5.4 g/dL (6.4-8.2) Albumin 2.9 g/dL (3.4-5.0) Assessment and Plan Assessmemt and Plan Problems Medical Problems: (1) Acute cholecystitis Status: Acute Comment Review of Relevant I have reviewed the following items kodi (where applicable) has been applied. Labs Laboratory Tests Test 05/22/20 17:08 05/22/20 17:15 05/22/20 17:17 05/22/20 17:35 Urine Collection Type Unknown Urine Color Yellow Urine Clarity Turbid Urine pH 8.5 (<5.0-8.0) Urine Specific [place] 1.020 (1.000-1.030) Urine Protein Negative mg/dL (NEG-TRACE) Urine Glucose (UA) Negative mg/dL (NEG) Urine Ketones (Stick) Negative mg/dL (NEG) Urine Blood Negative (NEG) Urine Nitrite Positive (NEG) Urine Bilirubin Negative (NEG) Urine Urobilinogen Dipstick 1.0 mg/dL (0.2 mg/dL) Urine Leukocyte Esterase Moderate (NEG) Urine RBC Occ /HPF (0-2) Urine WBC 5-10 /HPF (0-4) Urine Squamous Epithelial Cells Many /LPF Urine Amorphous Sediment Present /HPF Urine Bacteria Many /HPF (0-FEW) Urine Opiates Screen Neg (NEG) Urine Methadone Screen Neg (NEG) Urine Barbiturates Neg (NEG) Urine Phencyclidine Screen Neg (NEG) Urine Amphetamine/Methamphetamine Neg (NEG) Urine Benzodiazepines Screen Neg (NEG) Urine Cocaine Screen Neg (NEG) Urine Cannabinoids Screen Neg (NEG) Urine Ethyl Alcohol Neg (NEG) White Blood Count 12.3 x10^3/uL (4.0-11.0) Red Blood Count 4.41 x10^6/uL (3.50-5.40) Hemoglobin 12.8 g/dL (12.0-15.5) Hematocrit 38.3 % (36.0-47.0) Mean Corpuscular Volume 87 fL (79-100) Mean Corpuscular Hemoglobin 29 pg (25-35) Mean Corpuscular Hemoglobin Concent 34 g/dL (31-37) Red Cell Distribution Width 13.4 % (11.5-14.5) Platelet Count 273 x10^3/uL (140-400) Neutrophils (%) (Auto) 76 % (31-73) Lymphocytes (%) (Auto) 17 % (24-48) Monocytes (%) (Auto) 6 % (0-9) Eosinophils (%) (Auto) 1 % (0-3) Basophils (%) (Auto) 1 % (0-3) Neutrophils # (Auto) 9.3 x10^3/uL (1.8-7.7) Lymphocytes # (Auto) 2.1 x10^3/uL (1.0-4.8) Monocytes # (Auto) 0.7 x10^3/uL (0.0-1.1) Eosinophils # (Auto) 0.1 x10^3/uL (0.0-0.7) Basophils # (Auto) 0.1 x10^3/uL (0.0-0.2) Sodium Level 142 mmol/L (136-145) Potassium Level 4.1 mmol/L (3.5-5.1) Chloride Level 106 mmol/L (98-107) Carbon Dioxide Level 29 mmol/L (21-32) Anion Gap 7 (6-14) Blood Urea Nitrogen 10 mg/dL (7-20) Creatinine 0.8 mg/dL (0.6-1.0) Estimated GFR (Cockcroft-Gault) 80.3 BUN/Creatinine Ratio 13 (6-20) Glucose Level 107 mg/dL (70-99) Calcium Level 9.2 mg/dL (8.5-10.1) Magnesium Level 2.0 mg/dL (1.8-2.4) Total Bilirubin 0.8 mg/dL (0.2-1.0) Aspartate Amino Transf (AST/SGOT) 89 U/L (15-37) Alanine Aminotransferase (ALT/SGPT) 65 U/L (14-59) Alkaline Phosphatase 115 U/L (46-116) Total Protein 7.1 g/dL (6.4-8.2) Albumin 3.7 g/dL (3.4-5.0) Albumin/Globulin Ratio 1.1 (1.0-1.7) Lipase 169 U/L (73-393) Ethyl Alcohol Level < 10 mg/dL (0-10) Bedside Urine HCG, Qualitative Hcg negative (Negative) Prothrombin Time 12.3 SEC (11.7-14.0) Prothromb Time International Ratio 1.0 (0.8-1.1) Activated Partial Thromboplast Time 29 SEC (24-38) Test 05/22/20 23:00 05/23/20 04:00 05/24/20 04:00 SARS-CoV-2 Antigen (Rapid) Negative (NEGATIVE) White Blood Count 6.6 x10^3/uL (4.0-11.0) 11.9 x10^3/uL (4.0-11.0) Red Blood Count 4.00 x10^6/uL (3.50-5.40) 3.80 x10^6/uL (3.50-5.40) Hemoglobin 11.9 g/dL (12.0-15.5) 11.2 g/dL (12.0-15.5) Hematocrit 35.6 % (36.0-47.0) 33.4 % (36.0-47.0) Mean Corpuscular Volume 89 fL (79-100) 88 fL (79-100) Mean Corpuscular Hemoglobin 30 pg (25-35) 30 pg (25-35) Mean Corpuscular Hemoglobin Concent 34 g/dL (31-37) 34 g/dL (31-37) Red Cell Distribution Width 13.3 % (11.5-14.5) 13.4 % (11.5-14.5) Platelet Count 231 x10^3/uL (140-400) 231 x10^3/uL (140-400) Neutrophils (%) (Auto) 73 % (31-73) 76 % (31-73) Lymphocytes (%) (Auto) 21 % (24-48) 16 % (24-48) Monocytes (%) (Auto) 6 % (0-9) 7 % (0-9) Eosinophils (%) (Auto) 1 % (0-3) 0 % (0-3) Basophils (%) (Auto) 0 % (0-3) 0 % (0-3) Neutrophils # (Auto) 4.8 x10^3/uL (1.8-7.7) 9.1 x10^3/uL (1.8-7.7) Lymphocytes # (Auto) 1.4 x10^3/uL (1.0-4.8) 1.9 x10^3/uL (1.0-4.8) Monocytes # (Auto) 0.4 x10^3/uL (0.0-1.1) 0.9 x10^3/uL (0.0-1.1) Eosinophils # (Auto) 0.0 x10^3/uL (0.0-0.7) 0.0 x10^3/uL (0.0-0.7) Basophils # (Auto) 0.0 x10^3/uL (0.0-0.2) 0.0 x10^3/uL (0.0-0.2) Sodium Level 141 mmol/L (136-145) 140 mmol/L (136-145) Potassium Level 4.0 mmol/L (3.5-5.1) 4.0 mmol/L (3.5-5.1) Chloride Level 107 mmol/L (98-107) 106 mmol/L (98-107) Carbon Dioxide Level 25 mmol/L (21-32) 24 mmol/L (21-32) Anion Gap 9 (6-14) 10 (6-14) Blood Urea Nitrogen 8 mg/dL (7-20) 9 mg/dL (7-20) Creatinine 0.7 mg/dL (0.6-1.0) 0.8 mg/dL (0.6-1.0) Estimated GFR (Cockcroft-Gault) 93.6 80.3 BUN/Creatinine Ratio 11 (6-20) Glucose Level 93 mg/dL (70-99) 100 mg/dL (70-99) Calcium Level 8.6 mg/dL (8.5-10.1) 8.1 mg/dL (8.5-10.1) Total Bilirubin 1.6 mg/dL (0.2-1.0) 2.9 mg/dL (0.2-1.0) Aspartate Amino Transf (AST/SGOT) 387 U/L (15-37) 309 U/L (15-37) Alanine Aminotransferase (ALT/SGPT) 318 U/L (14-59) 451 U/L (14-59) Alkaline Phosphatase 120 U/L (46-116) 164 U/L (46-116) Total Protein 6.1 g/dL (6.4-8.2) 5.4 g/dL (6.4-8.2) Albumin 3.2 g/dL (3.4-5.0) 2.9 g/dL (3.4-5.0) Albumin/Globulin Ratio 1.1 (1.0-1.7) Direct Bilirubin 2.5 mg/dL (0.0-0.2) Laboratory Tests Test 05/24/20 04:00 White Blood Count 11.9 x10^3/uL (4.0-11.0) Red Blood Count 3.80 x10^6/uL (3.50-5.40) Hemoglobin 11.2 g/dL (12.0-15.5) Hematocrit 33.4 % (36.0-47.0) Mean Corpuscular Volume 88 fL (79-100) Mean Corpuscular Hemoglobin 30 pg (25-35) Mean Corpuscular Hemoglobin Concent 34 g/dL (31-37) Red Cell Distribution Width 13.4 % (11.5-14.5) Platelet Count 231 x10^3/uL (140-400) Neutrophils (%) (Auto) 76 % (31-73) Lymphocytes (%) (Auto) 16 % (24-48) Monocytes (%) (Auto) 7 % (0-9) Eosinophils (%) (Auto) 0 % (0-3) Basophils (%) (Auto) 0 % (0-3) Neutrophils # (Auto) 9.1 x10^3/uL (1.8-7.7) Lymphocytes # (Auto) 1.9 x10^3/uL (1.0-4.8) Monocytes # (Auto) 0.9 x10^3/uL (0.0-1.1) Eosinophils # (Auto) 0.0 x10^3/uL (0.0-0.7) Basophils # (Auto) 0.0 x10^3/uL (0.0-0.2) Sodium Level 140 mmol/L (136-145) Potassium Level 4.0 mmol/L (3.5-5.1) Chloride Level 106 mmol/L (98-107) Carbon Dioxide Level 24 mmol/L (21-32) Anion Gap 10 (6-14) Blood Urea Nitrogen 9 mg/dL (7-20) Creatinine 0.8 mg/dL (0.6-1.0) Estimated GFR (Cockcroft-Gault) 80.3 Glucose Level 100 mg/dL (70-99) Calcium Level 8.1 mg/dL (8.5-10.1) Total Bilirubin 2.9 mg/dL (0.2-1.0) Direct Bilirubin 2.5 mg/dL (0.0-0.2) Aspartate Amino Transf (AST/SGOT) 309 U/L (15-37) Alanine Aminotransferase (ALT/SGPT) 451 U/L (14-59) Alkaline Phosphatase 164 U/L (46-116) Total Protein 5.4 g/dL (6.4-8.2) Albumin 2.9 g/dL (3.4-5.0) Medications Current Medications Famotidine (Pepcid Vial) 20 mg 1X ONCE IVP Last administered on 05/22/20at 17:34; Start 05/22/20 at 17:30; Stop 05/22/20 at 17:31; Status DC Ondansetron HCl (Zofran) 4 mg 1X ONCE IVP Last administered on 05/22/20at 17:34; Start 05/22/20 at 17:30; Stop 05/22/20 at 17:31; Status DC Fentanyl Citrate (Fentanyl 2ml Vial) 50 mcg 1X ONCE IVP Last administered on 05/22/20at 17:34; Start 05/22/20 at 17:30; Stop 05/22/20 at 17:31; Status DC Fentanyl Citrate (Fentanyl 2ml Vial) 50 mcg 1X ONCE IVP Last administered on 05/22/20at 19:48; Start 05/22/20 at 19:45; Stop 05/22/20 at 19:47; Status DC Ondansetron HCl (Zofran) 4 mg PRN Q8HRS PRN IV NAUSEA/VOMITING; Start 05/22/20 at 19:45; Stop 05/23/20 at 19:44; Status DC Fentanyl Citrate (Fentanyl 2ml Vial) 50 mcg PRN Q1HR PRN IV PAIN Last administered on 05/23/20at 18:09; Start 05/22/20 at 19:45; Stop 05/23/20 at 19:44; Status DC Sodium Chloride 1,000 ml @ 75 mls/hr 1X ONCE IV Last administered on 05/22/20at 20:13; Start 05/22/20 at 19:45; Stop 05/23/20 at 09:04; Status DC Piperacillin Sod/ Tazobactam Sod 3.375 gm/Sodium Chloride 50 ml @ 100 mls/hr 1X ONCE IV Last administered on 05/22/20at 20:13; Start 05/22/20 at 19:45; Stop 05/22/20 at 20:14; Status DC Ondansetron HCl (Zofran) 4 mg PRN Q6HRS PRN IV NAUSEA/VOMITING; Start 05/23/20 at 07:30; Stop 05/23/20 at 16:18; Status DC Fentanyl Citrate (Fentanyl 2ml Vial) 25 mcg PRN Q5MIN PRN IV MILD PAIN 1-3; Start 05/23/20 at 07:30; Stop 05/23/20 at 16:19; Status DC Fentanyl Citrate (Fentanyl 2ml Vial) 50 mcg PRN Q5MIN PRN IV MODERATE TO SEVERE PAIN; Start 05/23/20 at 07:30; Stop 05/23/20 at 16:19; Status DC Morphine Sulfate (Morphine Sulfate) 1 mg PRN Q10MIN PRN IV SEVERE PAIN 7-10; Start 05/23/20 at 07:30; Stop 05/23/20 at 16:19; Status DC Ringer's Solution 1,000 ml @ 30 mls/hr Q24H IV ; Start 05/23/20 at 07:27; Stop 05/23/20 at 16:19; Status DC Lidocaine HCl (Xylocaine-Mpf 1% 2ml Vial) 2 ml PRN 1X PRN ID PRIOR TO IV START; Start 05/23/20 at 07:30; Stop 05/23/20 at 16:19; Status DC Hydromorphone HCl (Dilaudid) 0.5 mg PRN Q10MIN PRN IV SEV PAIN, Second choice; Start 05/23/20 at 07:30; Stop 05/23/20 at 16:19; Status DC Prochlorperazine Edisylate (Compazine) 5 mg PACU PRN PRN IV NAUSEA, MRX1; Start 05/23/20 at 07:30; Stop 05/23/20 at 16:19; Status DC Heparin Sodium (Porcine) 1000 unit/Sodium Chloride 1,001 ml @ 1,001 mls/hr 1X ONCE IRR Last administered on 05/23/20at 10:31; Start 05/23/20 at 08:00; Stop 05/23/20 at 08:59; Status DC Bupivacaine HCl/ Epinephrine Bitart (Sensorcain-Epi 0.5%-1:177859 Mpf) 30 ml STK-MED ONCE .ROUTE Last administered on 05/23/20at 10:42; Start 05/23/20 at 08:37; Stop 05/23/20 at 08:37; Status DC Iohexol (Omnipaque 300 Mg/ml) 50 ml STK-MED ONCE .ROUTE Last administered on 05/23/20at 10:42; Start 05/23/20 at 08:37; Stop 05/23/20 at 08:37; Status DC Cellulose (Surgicel Hemostat 4x8) 1 each STK-MED ONCE .ROUTE Last administered on 05/23/20at 11:17; Start 05/23/20 at 08:37; Stop 05/23/20 at 08:37; Status DC Bisacodyl (Dulcolax Supp) 10 mg STK-MED ONCE .ROUTE Last administered on 05/23/20at 10:43; Start 05/23/20 at 08:37; Stop 05/23/20 at 08:37; Status DC Propofol (Diprivan) 200 mg STK-MED ONCE IV ; Start 05/23/20 at 09:13; Stop 05/23/20 at 09:13; Status DC Lidocaine HCl (Lidocaine Pf 2% Vial) 5 ml STK-MED ONCE .ROUTE ; Start 05/23/20 at 09:13; Stop 05/23/20 at 09:13; Status DC Ondansetron HCl (Zofran) 4 mg STK-MED ONCE .ROUTE ; Start 05/23/20 at 09:13; Stop 05/23/20 at 09:13; Status DC Dexamethasone Sodium Phosphate (Decadron) 4 mg STK-MED ONCE .ROUTE ; Start 05/23/20 at 09:13; Stop 05/23/20 at 09:13; Status DC Rocuronium [place] (Zemuron) 50 mg STK-MED ONCE .ROUTE ; Start 05/23/20 at 09:13; Stop 05/23/20 at 09:13; Status DC Fentanyl Citrate (Fentanyl 2ml Vial) 100 mcg STK-MED ONCE .ROUTE ; Start 05/23/20 at 09:13; Stop 05/23/20 at 09:13; Status DC Midazolam HCl (Versed) 2 mg STK-MED ONCE .ROUTE ; Start 05/23/20 at 09:13; Stop 05/23/20 at 09:13; Status DC Cefazolin Sodium (Ancef) 1 gm STK-MED ONCE IVP ; Start 05/23/20 at 10:12; Stop 05/23/20 at 10:12; Status DC Cefazolin Sodium (Ancef) 1 gm STK-MED ONCE IVP ; Start 05/23/20 at 10:12; Stop 05/23/20 at 10:12; Status DC Cefazolin Sodium (Ancef) 1 gm STK-MED ONCE IVP ; Start 05/23/20 at 10:12; Stop 05/23/20 at 10:12; Status DC Glucagon (Glucagen) 1 mg STK-MED ONCE .ROUTE ; Start 05/23/20 at 10:34; Stop 05/23/20 at 10:34; Status DC Iohexol (Omnipaque 300 Mg/ml) 50 ml STK-MED ONCE .ROUTE Last administered on 05/23/20at 10:42; Start 05/23/20 at 10:37; Stop 05/23/20 at 10:38; Status DC Neostigmine [place] (Neostigmine Methylsulfate) 5 mg STK-MED ONCE .ROUTE ; Start 05/23/20 at 10:45; Stop 05/23/20 at 10:45; Status DC Glycopyrrolate (Robinul) 1 mg STK-MED ONCE .ROUTE ; Start 05/23/20 at 10:45; Stop 05/23/20 at 10:46; Status DC Ketorolac Tromethamine (Toradol 30mg Vial) 30 mg STK-MED ONCE .ROUTE ; Start 05/23/20 at 10:52; Stop 05/23/20 at 10:52; Status DC Fentanyl Citrate (Fentanyl 2ml Vial) 100 mcg STK-MED ONCE .ROUTE ; Start 05/23/20 at 11:24; Stop 05/23/20 at 11:24; Status DC Sodium Chloride (Normal Saline Flush) 3 ml QSHIFT PRN IV AFTER MEDS AND BLOOD DRAWS; Start 05/23/20 at 11:45 Ringer's Solution 1,000 ml @ 100 mls/hr Q10H IV Last administered on 05/24/20at 03:58; Start 05/23/20 at 11:41 Dextrose (Dextrose 50%-Water Syringe) 12.5 gm PRN Q15MIN PRN IV SEE COMMENTS; Start 05/23/20 at 11:45 Acetaminophen/ Hydrocodone Bitart (Lortab 5/325) 1 tab PRN Q4HRS PRN PO MILD P AIN 1-3 Last administered on 05/24/20at 07:29; Start 05/23/20 at 11:45 Ketorolac Tromethamine (Toradol 30mg Vial) 30 mg PRN Q6HRS PRN IV INFLAMMATION PAIN Last administered on 05/24/20at 00:47; Start 05/23/20 at 11:45; Stop 05/28/20 at 11:44 Naloxone HCl (Narcan) 0.4 mg PRN Q2MIN PRN IV SEE INSTRUCTIONS; Start 05/23/20 at 11:45 Sodium Chloride 1,000 ml @ 25 mls/hr Q24H IV ; Start 05/23/20 at 11:41; Status Cancel Morphine Sulfate (Morphine Sulfate) 1 mg PRN Q1HR PRN IV PAIN Last administered on 05/24/20at 00:47; Start 05/23/20 at 11:45 Docusate Sodium (Colace) 100 mg BID PO Last administered on 05/24/20at 09:26; Start 05/23/20 at 21:00 Active Scripts Active Reported No Known Medications Prior To Admisstion (Info) Each 1 Each 1X Vitals/I & O Vital Sign - Last 24 Hours 05/23/20 05/23/20 05/23/20 05/23/20 11:38 11:55 11:59 12:10 Temp 97.2 97.2 97.2 97.2 97.2 97.2 Pulse 77 74 65 Resp 17 20 20 B/P (MAP) 155/65 153/72 157/69 Pulse Ox 100 100 100 O2 Delivery Room Air Simple Mask Mask Simple Mask O2 Flow Rate 6 6 6 6 05/23/20 05/23/20 05/23/20 05/23/20 12:25 12:40 12:53 12:59 Temp 97.2 97.6 97.2 97.6 Pulse 57 86 77 69 Resp 20 20 B/P (MAP) 149/81 144/81 138/85 (102) 141/92 (108) Pulse Ox 95 95 93 98 O2 Delivery Room Air Room Air Room Air Room Air 05/23/20 05/23/20 05/23/20 05/23/20 13:14 13:29 13:44 13:59 Pulse 83 62 93 66 B/P (MAP) 147/85 (105) 136/73 (94) 133/75 (94) 139/79 (99) Pulse Ox 94 O2 Delivery Room Air Room Air Room Air Room Air 05/23/20 05/23/20 05/23/20 05/23/20 14:29 15:00 15:29 15:30 Temp 98.7 98.7 Pulse 64 102 Resp 16 16 B/P (MAP) 146/74 (98) 143/84 (103) Pulse Ox 93 92 O2 Delivery Room Air Room Air Room Air Room Air 05/23/20 05/23/20 05/23/207/20 16:30 17:30 18:09 18:39 Pulse 103 109 Resp 16 16 B/P (MAP) 128/75 (92) 127/72 (90) Pulse Ox 91 94 O2 Delivery Room Air Room Air Room Air Room Air 05/23/20 05/23/20 05/23/20 05/23/20 19:00 20:30 20:42 21:42 Temp 98.8 98.8 Pulse 91 Resp 18 20 18 B/P (MAP) 135/91 (106) Pulse Ox 92 O2 Delivery Room Air Room Air Room Air Room Air 05/23/20 05/24/20 05/24/20 05/24/20 23:00 00:47 01:17 03:00 Temp 99.4 98.8 99.4 98.8 Pulse 94 89 Resp 18 20 18 18 B/P (MAP) 122/82 (95) 119/73 (88) Pulse Ox 91 92 O2 Delivery Room Air Room Air Room Air Room Air 05/24/20 05/24/20 05/24/20 05/24/20 07:00 07:29 07:40 08:29 Temp 98.1 98.1 Pulse 79 Resp 18 16 16 B/P (MAP) 154/95 (114) Pulse Ox 92 O2 Delivery Room Air Room Air Room Air 05/24/20 10:44 Temp 99.7 99.7 Pulse 82 Resp 18 B/P (MAP) 144/91 (108) Pulse Ox 90 O2 Delivery Room Air Intake and Output 05/23/20 05/23/20 05/24/20 14:59 22:59 06:59 Intake Total 1400 ml 920 ml 1300 ml Output Total 350 ml Balance 1050 ml 920 ml 1300 ml Justicifation of Admission Dx: Justifications for Admission: Justification of Admission Dx: Yes ADELAIDA GONZALES MD May 24, 2020 11:16
[2020-05-24 15:00] VITALS: BP 142/96
--- NOTE | 2020-05-24 16:36 | PDOC ---
SURGICAL PROGRESS NOTE DATE: 05/24/20 TIME: 16:34 Subjective tolerating diet pain managed ambulating urinating Vital Signs Vital Signs Date Time Temp Pulse Resp B/P (MAP) Pulse Ox O2 Delivery O2 Flow Rate FiO2 05/24/20 15:17 16 Room Air 05/24/20 15:00 98.5 83 142/96 (111) 95 98.5 05/23/20 12:10 6 I&O Intake and Output 05/24/20 07:00 Intake Total 3620 ml Output Total 350 ml Balance 3270 ml Intake Oral 1220 ml IV Total 2400 ml Output Urine Total 300 ml Estimated Blood Loss 50 ml # Voids 4 # Bowel Movements 1 General: Alert, Oriented X3, Cooperative Abdomen: Soft, Other (lap sites c/d/i, no erythema ) Labs Laboratory Tests Test 05/22/20 17:08 05/22/20 17:15 05/22/20 17:17 05/22/20 17:35 Urine Collection Type Unknown Urine Color Yellow Urine Clarity Turbid Urine pH 8.5 (<5.0-8.0) Urine Specific [place] 1.020 (1.000-1.030) Urine Protein Negative mg/dL (NEG-TRACE) Urine Glucose (UA) Negative mg/dL (NEG) Urine Ketones (Stick) Negative mg/dL (NEG) Urine Blood Negative (NEG) Urine Nitrite Positive (NEG) Urine Bilirubin Negative (NEG) Urine Urobilinogen Dipstick 1.0 mg/dL (0.2 mg/dL) Urine Leukocyte Esterase Moderate (NEG) Urine RBC Occ /HPF (0-2) Urine WBC 5-10 /HPF (0-4) Urine Squamous Epithelial Cells Many /LPF Urine Amorphous Sediment Present /HPF Urine Bacteria Many /HPF (0-FEW) Urine Opiates Screen Neg (NEG) Urine Methadone Screen Neg (NEG) Urine Barbiturates Neg (NEG) Urine Phencyclidine Screen Neg (NEG) Urine Amphetamine/Methamphetamine Neg (NEG) Urine Benzodiazepines Screen Neg (NEG) Urine Cocaine Screen Neg (NEG) Urine Cannabinoids Screen Neg (NEG) Urine Ethyl Alcohol Neg (NEG) White Blood Count 12.3 x10^3/uL (4.0-11.0) Red Blood Count 4.41 x10^6/uL (3.50-5.40) Hemoglobin 12.8 g/dL (12.0-15.5) Hematocrit 38.3 % (36.0-47.0) Mean Corpuscular Volume 87 fL (79-100) Mean Corpuscular Hemoglobin 29 pg (25-35) Mean Corpuscular Hemoglobin Concent 34 g/dL (31-37) Red Cell Distribution Width 13.4 % (11.5-14.5) Platelet Count 273 x10^3/uL (140-400) Neutrophils (%) (Auto) 76 % (31-73) Lymphocytes (%) (Auto) 17 % (24-48) Monocytes (%) (Auto) 6 % (0-9) Eosinophils (%) (Auto) 1 % (0-3) Basophils (%) (Auto) 1 % (0-3) Neutrophils # (Auto) 9.3 x10^3/uL (1.8-7.7) Lymphocytes # (Auto) 2.1 x10^3/uL (1.0-4.8) Monocytes # (Auto) 0.7 x10^3/uL (0.0-1.1) Eosinophils # (Auto) 0.1 x10^3/uL (0.0-0.7) Basophils # (Auto) 0.1 x10^3/uL (0.0-0.2) Sodium Level 142 mmol/L (136-145) Potassium Level 4.1 mmol/L (3.5-5.1) Chloride Level 106 mmol/L (98-107) Carbon Dioxide Level 29 mmol/L (21-32) Anion Gap 7 (6-14) Blood Urea Nitrogen 10 mg/dL (7-20) Creatinine 0.8 mg/dL (0.6-1.0) Estimated GFR (Cockcroft-Gault) 80.3 BUN/Creatinine Ratio 13 (6-20) Glucose Level 107 mg/dL (70-99) Calcium Level 9.2 mg/dL (8.5-10.1) Magnesium Level 2.0 mg/dL (1.8-2.4) Total Bilirubin 0.8 mg/dL (0.2-1.0) Aspartate Amino Transf (AST/SGOT) 89 U/L (15-37) Alanine Aminotransferase (ALT/SGPT) 65 U/L (14-59) Alkaline Phosphatase 115 U/L (46-116) Total Protein 7.1 g/dL (6.4-8.2) Albumin 3.7 g/dL (3.4-5.0) Albumin/Globulin Ratio 1.1 (1.0-1.7) Lipase 169 U/L (73-393) Ethyl Alcohol Level < 10 mg/dL (0-10) Bedside Urine HCG, Qualitative Hcg negative (Negative) Prothrombin Time 12.3 SEC (11.7-14.0) Prothromb Time International Ratio 1.0 (0.8-1.1) Activated Partial Thromboplast Time 29 SEC (24-38) Test 05/22/20 23:00 05/23/20 04:00 05/24/20 04:00 SARS-CoV-2 Antigen (Rapid) Negative (NEGATIVE) White Blood Count 6.6 x10^3/uL (4.0-11.0) 11.9 x10^3/uL (4.0-11.0) Red Blood Count 4.00 x10^6/uL (3.50-5.40) 3.80 x10^6/uL (3.50-5.40) Hemoglobin 11.9 g/dL (12.0-15.5) 11.2 g/dL (12.0-15.5) Hematocrit 35.6 % (36.0-47.0) 33.4 % (36.0-47.0) Mean Corpuscular Volume 89 fL (79-100) 88 fL (79-100) Mean Corpuscular Hemoglobin 30 pg (25-35) 30 pg (25-35) Mean Corpuscular Hemoglobin Concent 34 g/dL (31-37) 34 g/dL (31-37) Red Cell Distribution Width 13.3 % (11.5-14.5) 13.4 % (11.5-14.5) Platelet Count 231 x10^3/uL (140-400) 231 x10^3/uL (140-400) Neutrophils (%) (Auto) 73 % (31-73) 76 % (31-73) Lymphocytes (%) (Auto) 21 % (24-48) 16 % (24-48) Monocytes (%) (Auto) 6 % (0-9) 7 % (0-9) Eosinophils (%) (Auto) 1 % (0-3) 0 % (0-3) Basophils (%) (Auto) 0 % (0-3) 0 % (0-3) Neutrophils # (Auto) 4.8 x10^3/uL (1.8-7.7) 9.1 x10^3/uL (1.8-7.7) Lymphocytes # (Auto) 1.4 x10^3/uL (1.0-4.8) 1.9 x10^3/uL (1.0-4.8) Monocytes # (Auto) 0.4 x10^3/uL (0.0-1.1) 0.9 x10^3/uL (0.0-1.1) Eosinophils # (Auto) 0.0 x10^3/uL (0.0-0.7) 0.0 x10^3/uL (0.0-0.7) Basophils # (Auto) 0.0 x10^3/uL (0.0-0.2) 0.0 x10^3/uL (0.0-0.2) Sodium Level 141 mmol/L (136-145) 140 mmol/L (136-145) Potassium Level 4.0 mmol/L (3.5-5.1) 4.0 mmol/L (3.5-5.1) Chloride Level 107 mmol/L (98-107) 106 mmol/L (98-107) Carbon Dioxide Level 25 mmol/L (21-32) 24 mmol/L (21-32) Anion Gap 9 (6-14) 10 (6-14) Blood Urea Nitrogen 8 mg/dL (7-20) 9 mg/dL (7-20) Creatinine 0.7 mg/dL (0.6-1.0) 0.8 mg/dL (0.6-1.0) Estimated GFR (Cockcroft-Gault) 93.6 80.3 BUN/Creatinine Ratio 11 (6-20) Glucose Level 93 mg/dL (70-99) 100 mg/dL (70-99) Calcium Level 8.6 mg/dL (8.5-10.1) 8.1 mg/dL (8.5-10.1) Total Bilirubin 1.6 mg/dL (0.2-1.0) 2.9 mg/dL (0.2-1.0) Aspartate Amino Transf (AST/SGOT) 387 U/L (15-37) 309 U/L (15-37) Alanine Aminotransferase (ALT/SGPT) 318 U/L (14-59) 451 U/L (14-59) Alkaline Phosphatase 120 U/L (46-116) 164 U/L (46-116) Total Protein 6.1 g/dL (6.4-8.2) 5.4 g/dL (6.4-8.2) Albumin 3.2 g/dL (3.4-5.0) 2.9 g/dL (3.4-5.0) Albumin/Globulin Ratio 1.1 (1.0-1.7) Direct Bilirubin 2.5 mg/dL (0.0-0.2) Laboratory Tests Test 05/24/20 04:00 White Blood Count 11.9 x10^3/uL (4.0-11.0) Red Blood Count 3.80 x10^6/uL (3.50-5.40) Hemoglobin 11.2 g/dL (12.0-15.5) Hematocrit 33.4 % (36.0-47.0) Mean Corpuscular Volume 88 fL (79-100) Mean Corpuscular Hemoglobin 30 pg (25-35) Mean Corpuscular Hemoglobin Concent 34 g/dL (31-37) Red Cell Distribution Width 13.4 % (11.5-14.5) Platelet Count 231 x10^3/uL (140-400) Neutrophils (%) (Auto) 76 % (31-73) Lymphocytes (%) (Auto) 16 % (24-48) Monocytes (%) (Auto) 7 % (0-9) Eosinophils (%) (Auto) 0 % (0-3) Basophils (%) (Auto) 0 % (0-3) Neutrophils # (Auto) 9.1 x10^3/uL (1.8-7.7) Lymphocytes # (Auto) 1.9 x10^3/uL (1.0-4.8) Monocytes # (Auto) 0.9 x10^3/uL (0.0-1.1) Eosinophils # (Auto) 0.0 x10^3/uL (0.0-0.7) Basophils # (Auto) 0.0 x10^3/uL (0.0-0.2) Sodium Level 140 mmol/L (136-145) Potassium Level 4.0 mmol/L (3.5-5.1) Chloride Level 106 mmol/L (98-107) Carbon Dioxide Level 24 mmol/L (21-32) Anion Gap 10 (6-14) Blood Urea Nitrogen 9 mg/dL (7-20) Creatinine 0.8 mg/dL (0.6-1.0) Estimated GFR (Cockcroft-Gault) 80.3 Glucose Level 100 mg/dL (70-99) Calcium Level 8.1 mg/dL (8.5-10.1) Total Bilirubin 2.9 mg/dL (0.2-1.0) Direct Bilirubin 2.5 mg/dL (0.0-0.2) Aspartate Amino Transf (AST/SGOT) 309 U/L (15-37) Alanine Aminotransferase (ALT/SGPT) 451 U/L (14-59) Alkaline Phosphatase 164 U/L (46-116) Total Protein 5.4 g/dL (6.4-8.2) Albumin 2.9 g/dL (3.4-5.0) Problem List Problems Medical Problems: (1) Acute cholecystitis Status: Acute Assessment/Plan s/p debbie Noted LFTS--likely related to surgery--however will recheck in AM Justicifation of Admission Dx: Justifications for Admission: Justification of Admission Dx: Yes XIOMARA GARCIA ED MANAGER May 24, 2020 16:36
[2020-05-24 19:00] VITALS: BP 123/85
[2020-05-24 23:00] VITALS: BP 124/81
[2020-05-25] MEDS: HYDROcodone/APAP 5/325MG 1 TAB TABLET PO PRN ×3 (02:53→12:36)
[2020-05-25 03:00] VITALS: BP 118/80
[2020-05-25 06:07] LABS: ALBUMIN 2.8 g/dL (3.4-5.0); DIRECT BILIRUBIN 1.8 mg/dL (0.0-0.2); TOTAL BILIRUBIN 2.1 mg/dL (0.2-1.0)
[2020-05-25 07:00] VITALS: BP 139/88
[2020-05-25] MEDS: DOCUSATE SODIUM 100 MG CAPSULE. PO SCH (08:38)
--- NOTE | 2020-05-25 10:43 | PDOC ---
PROGRESS NOTES Date of Service: DATE: 05/25/20 TIME: 10:43 Chief Complaint Chief Complaint VTE Prophylaxis Ordered VTE Prophylaxis Devices: Contraindicated VTE Pharmacological Prophylaxi: Contraindicated Assessment/Plan Assessment/Plan IMPRESSION: 1. Cholelithiasis with positive sonographic Driscoll sign. // acute cholecystitis. 2. No hydronephrosis. 3. Hepatic steatosis 4. morbid obesity plan admit NPO IV FLUID SUPPORT CONSULT GEN SURGERY DVT PROPHYLAXIS, SCD'S D/C PLANNING 33 MIN Justicifation of Admission Dx: Justicifation of Admission Dx: Justifications for Admission: Justification of Admission Dx: Yes Vitals Vitals Vital Signs Date Time Temp Pulse Resp B/P (MAP) Pulse Ox O2 Delivery O2 Flow Rate FiO2 05/25/20 08:38 16 Nasal Cannula 05/25/20 07:00 98.5 68 139/88 (105) 91 98.5 Physical Exam General: Alert, Oriented X3, Cooperative, No acute distress Heart: Regular rate Lungs: Clear Abdomen: Normal bowel sounds, Soft, Other (lap sites c/d/i, no erythema ) Extremities: No cyanosis Skin: No rashes, No breakdown Labs LABS Intraoperative cholangiogram INDICATION: Cholangiogram in operating room with C-arm FINDINGS: Intraoperative cholangiogram shows opacification of the common bile duct and cystic duct stump with contrast entering into the duodenum. A stone was reportedly retrieved from the common duct. Total fluoroscopy time was 1 minute 44 seconds. 5 images were obtained. IMPRESSION: Intraoperative cholangiogram postcholecystectomy showing satisfactory drainage of contrast from the common bile duct. Electronically signed by: Shawnee Dias MD (05/23/2020 12:00 PM) [id number] DICTATED and SIGNED BY: SHAWNEE DIAS MD Laboratory Tests Test 05/25/20 04:45 Total Bilirubin 2.1 mg/dL (0.2-1.0) Direct Bilirubin 1.8 mg/dL (0.0-0.2) Aspartate Amino Transf (AST/SGOT) 130 U/L (15-37) Alanine Aminotransferase (ALT/SGPT) 339 U/L (14-59) Alkaline Phosphatase 182 U/L (46-116) Total Protein 6.0 g/dL (6.4-8.2) Albumin 2.8 g/dL (3.4-5.0) Assessment and Plan Assessmemt and Plan Problems Medical Problems: (1) Acute cholecystitis Status: Acute Comment Review of Relevant I have reviewed the following items kodi (where applicable) has been applied. Labs Laboratory Tests Test 05/24/20 04:00 05/25/20 04:45 White Blood Count 11.9 x10^3/uL (4.0-11.0) Red Blood Count 3.80 x10^6/uL (3.50-5.40) Hemoglobin 11.2 g/dL (12.0-15.5) Hematocrit 33.4 % (36.0-47.0) Mean Corpuscular Volume 88 fL (79-100) Mean Corpuscular Hemoglobin 30 pg (25-35) Mean Corpuscular Hemoglobin Concent 34 g/dL (31-37) Red Cell Distribution Width 13.4 % (11.5-14.5) Platelet Count 231 x10^3/uL (140-400) Neutrophils (%) (Auto) 76 % (31-73) Lymphocytes (%) (Auto) 16 % (24-48) Monocytes (%) (Auto) 7 % (0-9) Eosinophils (%) (Auto) 0 % (0-3) Basophils (%) (Auto) 0 % (0-3) Neutrophils # (Auto) 9.1 x10^3/uL (1.8-7.7) Lymphocytes # (Auto) 1.9 x10^3/uL (1.0-4.8) Monocytes # (Auto) 0.9 x10^3/uL (0.0-1.1) Eosinophils # (Auto) 0.0 x10^3/uL (0.0-0.7) Basophils # (Auto) 0.0 x10^3/uL (0.0-0.2) Sodium Level 140 mmol/L (136-145) Potassium Level 4.0 mmol/L (3.5-5.1) Chloride Level 106 mmol/L (98-107) Carbon Dioxide Level 24 mmol/L (21-32) Anion Gap 10 (6-14) Blood Urea Nitrogen 9 mg/dL (7-20) Creatinine 0.8 mg/dL (0.6-1.0) Estimated GFR (Cockcroft-Gault) 80.3 Glucose Level 100 mg/dL (70-99) Calcium Level 8.1 mg/dL (8.5-10.1) Total Bilirubin 2.9 mg/dL (0.2-1.0) 2.1 mg/dL (0.2-1.0) Direct Bilirubin 2.5 mg/dL (0.0-0.2) 1.8 mg/dL (0.0-0.2) Aspartate Amino Transf (AST/SGOT) 309 U/L (15-37) 130 U/L (15-37) Alanine Aminotransferase (ALT/SGPT) 451 U/L (14-59) 339 U/L (14-59) Alkaline Phosphatase 164 U/L (46-116) 182 U/L (46-116) Total Protein 5.4 g/dL (6.4-8.2) 6.0 g/dL (6.4-8.2) Albumin 2.9 g/dL (3.4-5.0) 2.8 g/dL (3.4-5.0) Laboratory Tests Test 05/25/20 04:45 Total Bilirubin 2.1 mg/dL (0.2-1.0) Direct Bilirubin 1.8 mg/dL (0.0-0.2) Aspartate Amino Transf (AST/SGOT) 130 U/L (15-37) Alanine Aminotransferase (ALT/SGPT) 339 U/L (14-59) Alkaline Phosphatase 182 U/L (46-116) Total Protein 6.0 g/dL (6.4-8.2) Albumin 2.8 g/dL (3.4-5.0) Medications Current Medications Famotidine (Pepcid Vial) 20 mg 1X ONCE IVP Last administered on 05/22/20at 17:34; Start 05/22/20 at 17:30; Stop 05/22/20 at 17:31; Status DC Ondansetron HCl (Zofran) 4 mg 1X ONCE IVP Last administered on 05/22/20at 17:34; Start 05/22/20 at 17:30; Stop 05/22/20 at 17:31; Status DC Fentanyl Citrate (Fentanyl 2ml Vial) 50 mcg 1X ONCE IVP Last administered on 05/22/20at 17:34; Start 05/22/20 at 17:30; Stop 05/22/20 at 17:31; Status DC Fentanyl Citrate (Fentanyl 2ml Vial) 50 mcg 1X ONCE IVP Last administered on 05/22/20at 19:48; Start 05/22/20 at 19:45; Stop 05/22/20 at 19:47; Status DC Ondansetron HCl (Zofran) 4 mg PRN Q8HRS PRN IV NAUSEA/VOMITING; Start 05/22/20 at 19:45; Stop 05/23/20 at 19:44; Status DC Fentanyl Citrate (Fentanyl 2ml Vial) 50 mcg PRN Q1HR PRN IV PAIN Last administered on 05/23/20at 18:09; Start 05/22/20 at 19:45; Stop 05/23/20 at 19:44; Status DC Sodium Chloride 1,000 ml @ 75 mls/hr 1X ONCE IV Last administered on 05/22/20at 20:13; Start 05/22/20 at 19:45; Stop 05/23/20 at 09:04; Status DC Piperacillin Sod/ Tazobactam Sod 3.375 gm/Sodium Chloride 50 ml @ 100 mls/hr 1X ONCE IV Last administered on 05/22/20at 20:13; Start 05/22/20 at 19:45; Stop 05/22/20 at 20:14; Status DC Ondansetron HCl (Zofran) 4 mg PRN Q6HRS PRN IV NAUSEA/VOMITING; Start 05/23/20 at 07:30; Stop 05/23/20 at 16:18; Status DC Fentanyl Citrate (Fentanyl 2ml Vial) 25 mcg PRN Q5MIN PRN IV MILD PAIN 1-3; St art 05/23/20 at 07:30; Stop 05/23/20 at 16:19; Status DC Fentanyl Citrate (Fentanyl 2ml Vial) 50 mcg PRN Q5MIN PRN IV MODERATE TO SEVERE PAIN; Start 05/23/20 at 07:30; Stop 05/23/20 at 16:19; Status DC Morphine Sulfate (Morphine Sulfate) 1 mg PRN Q10MIN PRN IV SEVERE PAIN 7-10; Start 05/23/20 at 07:30; Stop 05/23/20 at 16:19; Status DC Ringer's Solution 1,000 ml @ 30 mls/hr Q24H IV ; Start 05/23/20 at 07:27; Stop 05/23/20 at 16:19; Status DC Lidocaine HCl (Xylocaine-Mpf 1% 2ml Vial) 2 ml PRN 1X PRN ID PRIOR TO IV START; Start 05/23/20 at 07:30; Stop 05/23/20 at 16:19; Status DC Hydromorphone HCl (Dilaudid) 0.5 mg PRN Q10MIN PRN IV SEV PAIN, Second choice; Start 05/23/20 at 07:30; Stop 05/23/20 at 16:19; Status DC Prochlorperazine Edisylate (Compazine) 5 mg PACU PRN PRN IV NAUSEA, MRX1; Start 05/23/20 at 07:30; Stop 05/23/20 at 16:19; Status DC Heparin Sodium (Porcine) 1000 unit/Sodium Chloride 1,001 ml @ 1,001 mls/hr 1X ONCE IRR Last administered on 05/23/20at 10:31; Start 05/23/20 at 08:00; Stop 05/23/20 at 08:59; Status DC Bupivacaine HCl/ Epinephrine Bitart (Sensorcain-Epi 0.5%-1:174655 Mpf) 30 ml STK-MED ONCE .ROUTE Last administered on 05/23/20at 10:42; Start 05/23/20 at 08:37; Stop 05/23/20 at 08:37; Status DC Iohexol (Omnipaque 300 Mg/ml) 50 ml STK-MED ONCE .ROUTE Last administered on 05/23/20at 10:42; Start 05/23/20 at 08:37; Stop 05/23/20 at 08:37; Status DC Cellulose (Surgicel Hemostat 4x8) 1 each STK-MED ONCE .ROUTE Last administered on 05/23/20at 11:17; Start 05/23/20 at 08:37; Stop 05/23/20 at 08:37; Status DC Bisacodyl (Dulcolax Supp) 10 mg STK-MED ONCE .ROUTE Last administered on 05/23/20at 10:43; Start 05/23/20 at 08:37; Stop 05/23/20 at 08:37; Status DC Propofol (Diprivan) 200 mg STK-MED ONCE IV ; Start 05/23/20 at 09:13; Stop 05/23/20 at 09:13; Status DC Lidocaine HCl (Lidocaine Pf 2% Vial) 5 ml STK-MED ONCE .ROUTE ; Start 05/23/20 at 09:13; Stop 05/23/20 at 09:13; Status DC Ondansetron HCl (Zofran) 4 mg STK-MED ONCE .ROUTE ; Start 05/23/20 at 09:13; Stop 05/23/20 at 09:13; Status DC Dexamethasone Sodium Phosphate (Decadron) 4 mg STK-MED ONCE .ROUTE ; Start 05/23/20 at 09:13; Stop 05/23/20 at 09:13; Status DC Rocuronium [place] (Zemuron) 50 mg STK-MED ONCE .ROUTE ; Start 05/23/20 at 09:13; Stop 05/23/20 at 09:13; Status DC Fentanyl Citrate (Fentanyl 2ml Vial) 100 mcg STK-MED ONCE .ROUTE ; Start 05/23/20 at 09:13; Stop 05/23/20 at 09:13; Status DC Midazolam HCl (Versed) 2 mg STK-MED ONCE .ROUTE ; Start 05/23/20 at 09:13; Stop 05/23/20 at 09:13; Status DC Cefazolin Sodium (Ancef) 1 gm STK-MED ONCE IVP ; Start 05/23/20 at 10:12; Stop 05/23/20 at 10:12; Status DC Cefazolin Sodium (Ancef) 1 gm STK-MED ONCE IVP ; Start 05/23/20 at 10:12; Stop 05/23/20 at 10:12; Status DC Cefazolin Sodium (Ancef) 1 gm STK-MED ONCE IVP ; Start 05/23/20 at 10:12; Stop 05/23/20 at 10:12; Status DC Glucagon (Glucagen) 1 mg STK-MED ONCE .ROUTE ; Start 05/23/20 at 10:34; Stop 05/23/20 at 10:34; Status DC Iohexol (Omnipaque 300 Mg/ml) 50 ml STK-MED ONCE .ROUTE Last administered on 05/23/20at 10:42; Start 05/23/20 at 10:37; Stop 05/23/20 at 10:38; Status DC Neostigmine [place] (Neostigmine Methylsulfate) 5 mg STK-MED ONCE .ROUTE ; Start 05/23/20 at 10:45; Stop 05/23/20 at 10:45; Status DC Glycopyrrolate (Robinul) 1 mg STK-MED ONCE .ROUTE ; Start 05/23/20 at 10:45; Stop 05/23/20 at 10:46; Status DC Ketorolac Tromethamine (Toradol 30mg Vial) 30 mg STK-MED ONCE .ROUTE ; Start 05/23/20 at 10:52; Stop 05/23/20 at 10:52; Status DC Fentanyl Citrate (Fentanyl 2ml Vial) 100 mcg STK-MED ONCE .ROUTE ; Start 05/23/20 at 11:24; Stop 05/23/20 at 11:24; Status DC Sodium Chloride (Normal Saline Flush) 3 ml QSHIFT PRN IV AFTER MEDS AND BLOOD DRAWS; Start 05/23/20 at 11:45 Ringer's Solution 1,000 ml @ 100 mls/hr Q10H IV Last administered on 05/24/20at 03:58; Start 05/23/20 at 11:41; Stop 05/24/20 at 14:20; Status DC Dextrose (Dextrose 50%-Water Syringe) 12.5 gm PRN Q15MIN PRN IV SEE COMMENTS; Start 05/23/20 at 11:45 Acetaminophen/ Hydrocodone Bitart (Lortab 5/325) 1 tab PRN Q4HRS PRN PO MILD PAIN 1-3 Last administered on 05/25/20at 08:38; Start 05/23/20 at 11:45 Ketorolac Tromethamine (Toradol 30mg Vial) 30 mg PRN Q6HRS PRN IV INFLAMMATION PAIN Last administered on 05/24/20at 00:47; Start 05/23/20 at 11:45; Stop 05/28/20 at 11:44 Naloxone HCl (Narcan) 0.4 mg PRN Q2MIN PRN IV SEE INSTRUCTIONS; Start 05/23/20 at 11:45 Sodium Chloride 1,000 ml @ 25 mls/hr Q24H IV ; Start 05/23/20 at 11:41; Status Cancel Morphine Sulfate (Morphine Sulfate) 1 mg PRN Q1HR PRN IV PAIN Last administered on 05/24/20at 00:47; Start 05/23/20 at 11:45 Docusate Sodium (Colace) 100 mg BID PO Last administered on 05/25/20at 08:38; Start 05/23/20 at 21:00 Active Scripts Active Reported No Known Medications Prior To Admisstion (Info) Each 1 Each 1X Vitals/I & O Vital Sign - Last 24 Hours 05/24/20 05/24/20 05/24/20 05/24/20 10:44 14:17 15:00 15:17 Temp 99.7 98.5 99.7 98.5 Pulse 82 83 Resp 18 16 18 16 B/P (MAP) 144/91 (108) 142/96 (111) Pulse Ox 90 95 O2 Delivery Room Air Room Air Room Air Room Air 05/24/20 05/24/20 05/24/20 05/24/20 18:44 19:00 19:44 20:00 Temp 98.1 98.1 Pulse 73 Resp 16 16 18 B/P (MAP) 123/85 (98) Pulse Ox 91 95 O2 Delivery Room Air Room Air Room Air 05/24/20 05/24/20 05/24/20 05/25/20 22:43 23:00 23:45 02:53 Temp 98.2 98.2 Pulse 75 Resp 20 18 18 20 B/P (MAP) 124/81 (95) Pulse Ox 92 05/25/20 05/25/20 05/25/20 05/25/20 03:00 03:55 07:00 07:45 Temp 98.1 98.5 98.1 98.5 Pulse 78 68 Resp 16 16 18 B/P (MAP) 118/80 (93) 139/88 (105) Pulse Ox 90 91 O2 Delivery Room Air 05/25/20 08:38 Resp 16 O2 Delivery Nasal Cannula Intake and Output 05/24/20 05/24/20 05/25/20 15:00 23:00 07:00 Intake Total 240 ml 240 ml Balance 240 ml 240 ml Justicifation of Admission Dx: Justifications for Admission: Justification of Admission Dx: Yes ADELAIDA GONZALES MD May 25, 2020 10:43
[2020-05-25 10:57] VITALS: BP 150/83
[2020-05-25] MEDS ORDERED: DOCU-153 PO (12:11)
[2020-05-25] MEDS ORDERED: HYDR-2761 PO (12:11)
--- NOTE | 2020-05-25 12:15 | PDOC ---
SURGICAL PROGRESS NOTE DATE: 05/25/20 TIME: 12:14 Subjective pain managed tolerating diet Vital Signs Vital Signs Date Time Temp Pulse Resp B/P (MAP) Pulse Ox O2 Delivery O2 Flow Rate FiO2 05/25/20 10:57 98.2 73 18 150/83 (105) 90 98.2 05/25/20 09:38 Room Air I&O Intake and Output 05/25/20 07:00 Intake Total 480 ml Balance 480 ml Intake Oral 480 ml # Voids 2 General: Alert, Oriented X3, Cooperative Abdomen: Soft, Other (ND, lap dressings dry) Labs Laboratory Tests Test 05/24/20 04:00 05/25/20 04:45 White Blood Count 11.9 x10^3/uL (4.0-11.0) Red Blood Count 3.80 x10^6/uL (3.50-5.40) Hemoglobin 11.2 g/dL (12.0-15.5) Hematocrit 33.4 % (36.0-47.0) Mean Corpuscular Volume 88 fL (79-100) Mean Corpuscular Hemoglobin 30 pg (25-35) Mean Corpuscular Hemoglobin Concent 34 g/dL (31-37) Red Cell Distribution Width 13.4 % (11.5-14.5) Platelet Count 231 x10^3/uL (140-400) Neutrophils (%) (Auto) 76 % (31-73) Lymphocytes (%) (Auto) 16 % (24-48) Monocytes (%) (Auto) 7 % (0-9) Eosinophils (%) (Auto) 0 % (0-3) Basophils (%) (Auto) 0 % (0-3) Neutrophils # (Auto) 9.1 x10^3/uL (1.8-7.7) Lymphocytes # (Auto) 1.9 x10^3/uL (1.0-4.8) Monocytes # (Auto) 0.9 x10^3/uL (0.0-1.1) Eosinophils # (Auto) 0.0 x10^3/uL (0.0-0.7) Basophils # (Auto) 0.0 x10^3/uL (0.0-0.2) Sodium Level 140 mmol/L (136-145) Potassium Level 4.0 mmol/L (3.5-5.1) Chloride Level 106 mmol/L (98-107) Carbon Dioxide Level 24 mmol/L (21-32) Anion Gap 10 (6-14) Blood Urea Nitrogen 9 mg/dL (7-20) Creatinine 0.8 mg/dL (0.6-1.0) Estimated GFR (Cockcroft-Gault) 80.3 Glucose Level 100 mg/dL (70-99) Calcium Level 8.1 mg/dL (8.5-10.1) Total Bilirubin 2.9 mg/dL (0.2-1.0) 2.1 mg/dL (0.2-1.0) Direct Bilirubin 2.5 mg/dL (0.0-0.2) 1.8 mg/dL (0.0-0.2) Aspartate Amino Transf (AST/SGOT) 309 U/L (15-37) 130 U/L (15-37) Alanine Aminotransferase (ALT/SGPT) 451 U/L (14-59) 339 U/L (14-59) Alkaline Phosphatase 164 U/L (46-116) 182 U/L (46-116) Total Protein 5.4 g/dL (6.4-8.2) 6.0 g/dL (6.4-8.2) Albumin 2.9 g/dL (3.4-5.0) 2.8 g/dL (3.4-5.0) Laboratory Tests Test 05/25/20 04:45 Total Bilirubin 2.1 mg/dL (0.2-1.0) Direct Bilirubin 1.8 mg/dL (0.0-0.2) Aspartate Amino Transf (AST/SGOT) 130 U/L (15-37) Alanine Aminotransferase (ALT/SGPT) 339 U/L (14-59) Alkaline Phosphatase 182 U/L (46-116) Total Protein 6.0 g/dL (6.4-8.2) Albumin 2.8 g/dL (3.4-5.0) Problem List Problems Medical Problems: (1) Acute cholecystitis Status: Acute Assessment/Plan s/p lap debbie LFTs trending down ok to dc FU 1 week Justicifation of Admission Dx: Justifications for Admission: Justification of Admission Dx: Yes XIOMARA GARCIA CUT OFF SAW SET UP OPERATOR May 25, 2020 12:14
--- NOTE | 2020-05-25 13:40 | DISCH ---
DISCHARGE INSTRUCTIONS Condition on Discharge Condition on Discharge: Stable Activity After Discharge Activity Instructions for Disc: Activity as tolerated Driving Instructions after Dis: Do not drive Diet after Discharge Diet after Discharge: Regular Liquid Texture: Thin Liquid Checks after Discharge Checks after discharge: Check blood press - daily Contacting the DRGarry after DC Call your doctor for: If your condition worsens Warfarin Follow-Up Warfarin Follow UP: SEE SURGERY 2 WEEKS, PCP ADELAIDA STILES MD May 25, 2020 13:40
--- NOTE | 2020-05-25 13:40 | PDOC3 ---
Discharge Summary Date of Admission: May 23, 2020 Date of Discharge: May 25, 2020 Follow-Up: 3-5 days Admitting Diagnosis comment: IMPRESSION POD # 2 LAP STEFANY Assessment/Plan IMPRESSION: 1. Cholelithiasis with positive sonographic Driscoll sign. // acute cholecystitis. 2. No hydronephrosis. 3. Hepatic steatosis 4. morbid obesity plan admit REG DIET IV FLUID SUPPORT CONSULT GEN SURGERY OK WITH D/C DVT PROPHYLAXIS, SCD'S D/C PLANNING 33 MIN Justicifation of Admission Dx: Justicifation of Admission Dx: Justifications for Admission: Justification of Admission Dx: Yes Vitals Vitals Vital Signs Date Time Temp Pulse Resp B/P (MAP) Pulse Ox O2 Delivery O2 Flow Rate FiO2 05/25/20 08:38 16 Nasal Cannula 05/25/20 07:00 98.5 68 139/88 (105) 91 98.5 Physical Exam General: Alert, Oriented X3, Cooperative, No acute distress Heart: Regular rate Lungs: Clear Abdomen: Normal bowel sounds, Soft, Other (lap sites c/d/i, no erythema ) Extremities: No cyanosis Skin: No rashes, No breakdown Labs LABS Intraoperative cholangiogram INDICATION: Cholangiogram in operating room with C-arm FINDINGS: Intraoperative cholangiogram shows opacification of the common bile duct and cystic duct stump with contrast entering into the duodenum. A stone was reportedly retrieved from the common duct. Total fluoroscopy time was 1 minute 44 seconds. 5 images were obtained. IMPRESSION: Intraoperative cholangiogram postcholecystectomy showing satisfactory drainage of contrast from the common bile duct. Electronically signed by: Ros Dias MD (05/23/2020 12:00 PM) [id number] FINAL DIAGNOSIS Problems Medical Problems: (1) Acute cholecystitis Status: Acute Brief Hospital Course Ms. Schneider is a 39 old [sex] who presented with [ ACUTE CHOLECYSTITIS] CONDITION AT DISCHARGE: Improved Discharge Medications Current Medications Famotidine (Pepcid Vial) 20 mg 1X ONCE IVP Last administered on 05/22/20at 17:34; Start 05/22/20 at 17:30; Stop 05/22/20 at 17:31; Status DC Ondansetron HCl (Zofran) 4 mg 1X ONCE IVP Last administered on 05/22/20at 17:34; Start 05/22/20 at 17:30; Stop 05/22/20 at 17:31; Status DC Fentanyl Citrate (Fentanyl 2ml Vial) 50 mcg 1X ONCE IVP Last administered on 05/22/20at 17:34; Start 05/22/20 at 17:30; Stop 05/22/20 at 17:31; Status DC Fentanyl Citrate (Fentanyl 2ml Vial) 50 mcg 1X ONCE IVP Last administered on 05/22/20at 19:48; Start 05/22/20 at 19:45; Stop 05/22/20 at 19:47; Status DC Ondansetron HCl (Zofran) 4 mg PRN Q8HRS PRN IV NAUSEA/VOMITING; Start 05/22/20 at 19:45; Stop 05/23/20 at 19:44; Status DC Fentanyl Citrate (Fentanyl 2ml Vial) 50 mcg PRN Q1HR PRN IV PAIN Last administered on 05/23/20at 18:09; Start 05/22/20 at 19:45; Stop 05/23/20 at 19:44; Status DC Sodium Chloride 1,000 ml @ 75 mls/hr 1X ONCE IV Last administered on 05/22/20at 20:13; Start 05/22/20 at 19:45; Stop 05/23/20 at 09:04; Status DC Piperacillin Sod/ Tazobactam Sod 3.375 gm/Sodium Chloride 50 ml @ 100 mls/hr 1X ONCE IV Last administered on 05/22/20at 20:13; Start 05/22/20 at 19:45; Stop 05/22/20 at 20:14; Status DC Ondansetron HCl (Zofran) 4 mg PRN Q6HRS PRN IV NAUSEA/VOMITING; Start 05/23/20 at 07:30; Stop 05/23/20 at 16:18; Status DC Fentanyl Citrate (Fentanyl 2ml Vial) 25 mcg PRN Q5MIN PRN IV MILD PAIN 1-3; Start 05/23/20 at 07:30; Stop 05/23/20 at 16:19; Status DC Fentanyl Citrate (Fentanyl 2ml Vial) 50 mcg PRN Q5MIN PRN IV MODERATE TO SEVERE PAIN; Start 05/23/20 at 07:30; Stop 05/23/20 at 16:19; Status DC Morphine Sulfate (Morphine Sulfate) 1 mg PRN Q10MIN PRN IV SEVERE PAIN 7-10; Start 05/23/20 at 07:30; Stop 05/23/20 at 16:19; Status DC Ringer's Solution 1,000 ml @ 30 mls/hr Q24H IV ; Start 05/23/20 at 07:27; Stop 05/23/20 at 16:19; Status DC Lidocaine HCl (Xylocaine-Mpf 1% 2ml Vial) 2 ml PRN 1X PRN ID PRIOR TO IV START; Start 05/23/20 at 07:30; Stop 05/23/20 at 16:19; Status DC Hydromorphone HCl (Dilaudid) 0.5 mg PRN Q10MIN PRN IV SEV PAIN, Second choice; Start 05/23/20 at 07:30; Stop 05/23/20 at 16:19; Status DC Prochlorperazine Edisylate (Compazine) 5 mg PACU PRN PRN IV NAUSEA, MRX1; Start 05/23/20 at 07:30; Stop 05/23/20 at 16:19; Status DC Heparin Sodium (Porcine) 1000 unit/Sodium Chloride 1,001 ml @ 1,001 mls/hr 1X ONCE IRR Last administered on 05/23/20at 10:31; Start 05/23/20 at 08:00; Stop 05/23/20 at 08:59; Status DC Bupivacaine HCl/ Epinephrine Bitart (Sensorcain-Epi 0.5%-1:561770 Mpf) 30 ml STK-MED ONCE .ROUTE Last administered on 05/23/20at 10:42; Start 05/23/20 at 08:37; Stop 05/23/20 at 08:37; Status DC Iohexol (Omnipaque 300 Mg/ml) 50 ml STK-MED ONCE .ROUTE Last administered on 05/23/20at 10:42; Start 05/23/20 at 08:37; Stop 05/23/20 at 08:37; Status DC Cellulose (Surgicel Hemostat 4x8) 1 each STK-MED ONCE .ROUTE Last administered on 05/23/20at 11:17; Start 05/23/20 at 08:37; Stop 05/23/20 at 08:37; Status DC Bisacodyl (Dulcolax Supp) 10 mg STK-MED ONCE .ROUTE Last administered on 05/23/20at 10:43; Start 05/23/20 at 08:37; Stop 05/23/20 at 08:37; Status DC Propofol (Diprivan) 200 mg STK-MED ONCE IV ; Start 05/23/20 at 09:13; Stop 0 at 09:13; Status DC Lidocaine HCl (Lidocaine Pf 2% Vial) 5 ml STK-MED ONCE .ROUTE ; Start 05/23/20 at 09:13; Stop 05/23/20 at 09:13; Status DC Ondansetron HCl (Zofran) 4 mg STK-MED ONCE .ROUTE ; Start 05/23/20 at 09:13; Stop 05/23/20 at 09:13; Status DC Dexamethasone Sodium Phosphate (Decadron) 4 mg STK-MED ONCE .ROUTE ; Start 05/23/20 at 09:13; Stop 05/23/20 at 09:13; Status DC Rocuronium Colbert (Zemuron) 50 mg STK-MED ONCE .ROUTE ; Start 05/23/20 at 09:13; Stop 05/23/20 at 09:13; Status DC Fentanyl Citrate (Fentanyl 2ml Vial) 100 mcg STK-MED ONCE .ROUTE ; Start 05/23/20 at 09:13; Stop 05/23/20 at 09:13; Status DC Midazolam HCl (Versed) 2 mg STK-MED ONCE .ROUTE ; Start 05/23/20 at 09:13; Stop 05/23/20 at 09:13; Status DC Cefazolin Sodium (Ancef) 1 gm STK-MED ONCE IVP ; Start 05/23/20 at 10:12; Stop 05/23/20 at 10:12; Status DC Cefazolin Sodium (Ancef) 1 gm STK-MED ONCE IVP ; Start 05/23/20 at 10:12; Stop 05/23/20 at 10:12; Status DC Cefazolin Sodium (Ancef) 1 gm STK-MED ONCE IVP ; Start 05/23/20 at 10:12; Stop at 10:12; Status DC Glucagon (Glucagen) 1 mg STK-MED ONCE .ROUTE ; Start 05/23/20 at 10:34; Stop 05/23/20 at 10:34; Status DC Iohexol (Omnipaque 300 Mg/ml) 50 ml STK-MED ONCE .ROUTE Last administered on 05/23/20at 10:42; Start 05/23/20 at 10:37; Stop 05/23/20 at 10:38; Status DC Neostigmine Colbert (Neostigmine Methylsulfate) 5 mg STK-MED ONCE .ROUTE ; Start 05/23/20 at 10:45; Stop 05/23/20 at 10:45; Status DC Glycopyrrolate (Robinul) 1 mg STK-MED ONCE .ROUTE ; Start 05/23/20 at 10:45; Stop 05/23/20 at 10:46; Status DC Ketorolac Tromethamine (Toradol 30mg Vial) 30 mg STK-MED ONCE .ROUTE ; Start 05/23/20 at 10:52; Stop 05/23/20 at 10:52; Status DC Fentanyl Citrate (Fentanyl 2ml Vial) 100 mcg STK-MED ONCE .ROUTE ; Start 05/23/20 at 11:24; Stop 05/23/20 at 11:24; Status DC Sodium Chloride (Normal Saline Flush) 3 ml QSHIFT PRN IV AFTER MEDS AND BLOOD DRAWS; Start 05/23/20 at 11:45 Ringer's Solution 1,000 ml @ 100 mls/hr Q10H IV Last administered on 05/24/20at 03:58; Start 05/23/20 at 11:41; Stop 05/24/20 at 14:20; Status DC Dextrose (Dextrose 50%-Water Syringe) 12.5 gm PRN Q15MIN PRN IV SEE COMMENTS; Start 05/23/20 at 11:45 Acetaminophen/ Hydrocodone Bitart (Lortab 5/325) 1 tab PRN Q4HRS PRN PO MILD PAIN 1-3 Last administered on 05/25/20at 12:36; Start 05/23/20 at 11:45 Ketorolac Tromethamine (Toradol 30mg Vial) 30 mg PRN Q6HRS PRN IV INFLAMMATION PAIN Last administered on 05/24/20at 00:47; Start 05/23/20 at 11:45; Stop 05/28/20 at 11:44 Naloxone HCl (Narcan) 0.4 mg PRN Q2MIN PRN IV SEE INSTRUCTIONS; Start 05/23/20 at 11:45 Sodium Chloride 1,000 ml @ 25 mls/hr Q24H IV ; Start 05/23/20 at 11:41; Status Cancel Morphine Sulfate (Morphine Sulfate) 1 mg PRN Q1HR PRN IV PAIN Last administered on 05/24/20at 00:47; Start 05/23/20 at 11:45 Docusate Sodium (Colace) 100 mg BID PO Last administered on 05/25/20at 08:38; Start 05/23/20 at 21:00 Active Scripts Active Hydrocodone-Apap 5-325 (Hydrocodone Bit/Acetaminophen) 1 Tab Tablet 1 Tab PO PRN Q4HRS PRN Reported No Known Medications Prior To Admisstion (Info) Each 1 Each 1X Vital Signs Vital Signs Date Time Temp Pulse Resp B/P (MAP) Pulse Ox O2 Delivery O2 Flow Rate FiO2 05/25/20 12:36 16 Room Air 05/25/20 10:57 98.2 73 150/83 (105) 90 98.2 Labs Laboratory Tests Test 05/24/20 04:00 05/25/20 04:45 White Blood Count 11.9 x10^3/uL (4.0-11.0) Red Blood Count 3.80 x10^6/uL (3.50-5.40) Hemoglobin 11.2 g/dL (12.0-15.5) Hematocrit 33.4 % (36.0-47.0) Mean Corpuscular Volume 88 fL (79-100) Mean Corpuscular Hemoglobin 30 pg (25-35) Mean Corpuscular Hemoglobin Concent 34 g/dL (31-37) Red Cell Distribution Width 13.4 % (11.5-14.5) Platelet Count 231 x10^3/uL (140-400) Neutrophils (%) (Auto) 76 % (31-73) Lymphocytes (%) (Auto) 16 % (24-48) Monocytes (%) (Auto) 7 % (0-9) Eosinophils (%) (Auto) 0 % (0-3) Basophils (%) (Auto) 0 % (0-3) Neutrophils # (Auto) 9.1 x10^3/uL (1.8-7.7) Lymphocytes # (Auto) 1.9 x10^3/uL (1.0-4.8) Monocytes # (Auto) 0.9 x10^3/uL (0.0-1.1) Eosinophils # (Auto) 0.0 x10^3/uL (0.0-0.7) Basophils # (Auto) 0.0 x10^3/uL (0.0-0.2) Sodium Level 140 mmol/L (136-145) Potassium Level 4.0 mmol/L (3.5-5.1) Chloride Level 106 mmol/L (98-107) Carbon Dioxide Level 24 mmol/L (21-32) Anion Gap 10 (6-14) Blood Urea Nitrogen 9 mg/dL (7-20) Creatinine 0.8 mg/dL (0.6-1.0) Estimated GFR (Cockcroft-Gault) 80.3 Glucose Level 100 mg/dL (70-99) Calcium Level 8.1 mg/dL (8.5-10.1) Total Bilirubin 2.9 mg/dL (0.2-1.0) 2.1 mg/dL (0.2-1.0) Direct Bilirubin 2.5 mg/dL (0.0-0.2) 1.8 mg/dL (0.0-0.2) Aspartate Amino Transf (AST/SGOT) 309 U/L (15-37) 130 U/L (15-37) Alanine Aminotransferase (ALT/SGPT) 451 U/L (14-59) 339 U/L (14-59) Alkaline Phosphatase 164 U/L (46-116) 182 U/L (46-116) Total Protein 5.4 g/dL (6.4-8.2) 6.0 g/dL (6.4-8.2) Albumin 2.9 g/dL (3.4-5.0) 2.8 g/dL (3.4-5.0) Laboratory Tests Test 05/25/20 04:45 Total Bilirubin 2.1 mg/dL (0.2-1.0) Direct Bilirubin 1.8 mg/dL (0.0-0.2) Aspartate Amino Transf (AST/SGOT) 130 U/L (15-37) Alanine Aminotransferase (ALT/SGPT) 339 U/L (14-59) Alkaline Phosphatase 182 U/L (46-116) Total Protein 6.0 g/dL (6.4-8.2) Albumin 2.8 g/dL (3.4-5.0) Allergies Allergies Coded Allergies Type Severity Reaction Last Updated Verified No Known Drug Allergies 05/22/20 No Disposition/Orders: D/C to Home Justicifation of Admission Dx: Justifications for Admission: Justification of Admission Dx: Yes ADELAIDA GONZALES MD May 25, 2020 13:40
[2020-05-25 14:30] VITALS: BP 160/95
--- NOTE | 2020-05-25 15:01 | NUR ---
Discharge instructions given to patient. Education given over surgical site care, restrictions, and follow up appointment. Medications have been called into her pharmacy. Pt verbalizes understanding.
--- NOTE | 2020-05-26 11:09 | NUR ---
IP: Attempted to notify pt of COVID results. Voicemail box full and could not leave a message. Will try again later.
--- NOTE | 2020-05-26 14:07 | PATHOLOGY ---
[facility] Accession Number: [id number] . 01 Material submitted: . PART A: gallbladder - GALLBLADDER AND CONTENTS PART B: bile duct - COMMON BILE DUCT STONE . 01 Clinical history: . Calculus, cholecystitis . 02 Diagnosis: A. Gallbladder, laparoscopic cholecystectomy: - Cholelithiasis. - Chronic and focal early mild acute cholecystitis with focally increased eosinophils. - Reactive changes of gallbladder neck lymph node. . B. Calculus, clinically from common bile duct (Gross only). (JPM:[facility] 05/26/2020) [facility] 05/26/2020 1350 Local . 02 Comment: There is no evidence of malignancy. (JPM:[facility] 05/26/2020) . 02 Electronically signed: . Toñito Marinelli MD, Pathologist NPI- [id number] . 01 Gross description: . A. The specimen is received in formalin labeled "Mery Schneider, gallbladder and contents" and consists of an intact edematous pink gallbladder measuring 12.1 x 3.6 x 3.2 cm. The margin is inked black. Opening reveals a lumen filled with tenacious green bile and multiple gravel-like calculi measuring up to 0.3 cm as well as a large yellow green calculus measuring 4.6 cm. The mucosa is green chance to pink with fibrotic streaks, and has an average wall thickness of 0.1-0.2 cm. No masses are identified. Adjacent the gallbladder neck is a lymph node candidate measuring 0.6 cm. Loop Cutter sections are submitted in A1-A2 with lymph node intact in A2. . B. The specimen is received in formalin, labeled "Schneider, Mery, common bile duct stone" and consists of a mulberry yellow calculi measuring 0.6 x 0.5 cm. No sections are submitted. (SDY; 05/23/2020) SYU/SYU 05/26/2020 1001 Local . 02 Pathologist provided ICD-10: K80.12 . 02 CPT . 043476, [id number] Specimen Comment: A courtesy copy of this report has been sent to [phone], [phone] Specimen Comment: [phone], Specimen Comment: Report sent to , / Performed at: 01 [facility] [address] [facility] [address], [place] [id number] MD Isidro Hightower MD Phone: [phone] Performed at: 02 [facility] [address] [place] [id number] MD Toñito Marinelli MD Phone: [phone]
--- NOTE | 2020-05-27 17:00 | NUR ---
IP: Pt phoned and stated the health department had gotten in touch with her. She had several questions concerning the antigen test being negative and the PCR being positive. Answered all questions. She verbalized understanding and will follow health department advice on 14 day quarantine.
== END 2020-05-25 14:50 | disposition home or self-care (01) | DRG 417 ==
LOC: ER 16:20 → 5 NORTH 19:33
PROVIDERS: ADMIT Family Medicine; ATTEND Family Medicine
PROC: BF101ZZ Fluoroscopy of Bile Ducts using Low Osmolar Contrast (ICD-10-PCS; 2020-05-23)
PROC: 0FC94ZZ Extirpation of Matter from Common Bile Duct, Percutaneous Endoscopic Approach (ICD-10-PCS; 2020-05-23)
PROC: 0FT44ZZ Resection of Gallbladder, Percutaneous Endoscopic Approach (ICD-10-PCS; principal; 2020-05-23 09:30)
DX: K80.63 Calculus of gallbladder and bile duct with acute cholecystitis with obstruction (principal); U07.1 COVID-19; E66.01 Morbid (severe) obesity due to excess calories; K76.0 Fatty (change of) liver, not elsewhere classified; K82.8 Other specified diseases of gallbladder; Z82.49 Family history of ischemic heart disease and other diseases of the circulatory system; Z79.899 Other long term (current) drug therapy; Z68.36 Body mass index [BMI] 36.0-36.9, adult; Z90.721 Acquired absence of ovaries, unilateral
CPT/HCPCS: 36415; 74300; 76700; 80048; 80053; 80076; 80307; 81001; 81025; 83690; 83735; 85025; 85610; 85730; 87426; 88304; 96365; 96375; 96376; 99285; A7015; C1757; G0480; J0690; J1100; J1610; J1885; J2250; J2270; J2405; J2543; J2704; J2710; J3010; J3490; J7030; J7120; Q9967; G0378; U0003-CS

== ENCOUNTER → 2020-06-06 | Outpatient (CLI) | payer OTHER ==
[2020-05-25 14:30] VITALS: BP 160/95
[~2020-06-06] MED LIST: DOCU-153 PO; HYDR-2761 PO
[2020-06-06 16:02] LABS: ALBUMIN 3.7 g/dL (3.4-5.0); DIRECT BILIRUBIN 0.3 mg/dL (0.0-0.2); TOTAL BILIRUBIN 0.5 mg/dL (0.2-1.0); TOTAL PROTEIN 7.3 g/dL (6.4-8.2)
== END | disposition home or self-care (01) ==
LOC: LAB 15:22
PROVIDERS: ATTEND Nurse Practitioner Family
DX: Z90.49 Acquired absence of other specified parts of digestive tract (principal)
CPT/HCPCS: 36415; 80076